=== PATIENT | male | born 1975 | race Two or more races ===

== ENCOUNTER 2017-05-31 12:44 | Inpatient (IN) | payer SELFPAY ==
[2017-05-31] MEDS ORDERED: fentaNYL PF VIAL 100 MCG/2 ML VIAL IV (13:45)
[2017-05-31] MEDS ORDERED: ONDANSETRON PF 4 MG/2 ML VIAL. IV ×2 (13:45→15:15)
[2017-05-31 14:14] LABS: ADD MAN DIFF? NO
[2017-05-31] MEDS: IV NORMAL SALINE 1000ML BAG 1,000 ML IV ×2 (14:21→21:11)
[2017-05-31] MEDS: ONDANSETRON PF 4 MG/2 ML VIAL. IV (14:24)
[2017-05-31 14:25] LABS: BASO # 0.1 x10^3/uL (0.0-0.2); BASO % 1 % (0-3); EOS # 0.1 x10^3/uL (0.0-0.7); EOS % 1 % (0-3); HEMATOCRIT 49.9 % (39.0-53.0); HEMOGLOBIN 16.9 g/dL (13.0-17.5); LYMPH # 2.1 x10^3/uL (1.0-4.8); LYMPH % 21 % (24-48); MEAN CORPUSCULAR HEMOGLOBIN 31 pg (25-35); MEAN CORPUSCULAR HGB CONC 34 g/dL (31-37); MEAN CORPUSCULAR VOLUME 93 fL (79-100); MONO # 0.9 x10^3/uL (0.0-1.1); MONO % 9 % (0-9); NEUT # 7.1 x10^3uL (1.8-7.7); NEUT % 68 % (31-73); PLATELET COUNT 345 x10^3/uL (140-400); RED BLOOD COUNT 5.38 x10^6/uL (4.30-5.70); RED CELL DISTRIBUTION WIDTH 12.7 % (11.5-14.5); WHITE BLOOD COUNT 10.4 x10^3/uL (4.0-11.0)
[2017-05-31] MEDS: KETOROLAC 30 MG/ML INJ. IV (14:26)
[2017-05-31] MEDS: ASPIRIN CHEWABLE 81 MG TABLET. PO (14:28)
[2017-05-31] MEDS: fentaNYL PF VIAL 100 MCG/2 ML VIAL IV (14:30)
[2017-05-31 14:33] LABS: PARTIAL THROMBOPLASTIN TIME 28 SEC (24-38); PROTHROMBIN TIME PATIENT 12.1 SEC (11.7-14.0)
[2017-05-31 14:57] LABS: ETHANOL < 10 mg/dL (0-10)
[2017-05-31 14:58] LABS: ANION GAP 13 (6-14); BLOOD UREA NITROGEN 19 mg/dL (8-26); BUN/CREATININE RATIO 21 (6-20); CALCIUM 10.2 mg/dL (8.5-10.1); CARBON DIOXIDE 25 mmol/L (21-32); CHLORIDE 102 mmol/L (98-107); CREATININE 0.9 mg/dL (0.7-1.3); GFR 93.5; GLUCOSE 86 mg/dL (70-99); POTASSIUM 3.8 mmol/L (3.5-5.1); SODIUM 140 mmol/L (136-145)
[2017-05-31 15:03] LABS: NT-PRO BNP 10 pg/mL (0-124)
[2017-05-31 15:03] LABS: ALBUMIN 4.5 g/dL (3.4-5.0); ALBUMIN/GLOBULIN RATIO 0.9 (1.0-1.7); ALK PHOS 117 U/L (46-116); ALT (SGPT) 143 U/L (16-63); AST (SGOT) 51 U/L (15-37); LIPASE 119 U/L (73-393); MAGNESIUM 2.3 mg/dL (1.8-2.4); TOTAL BILIRUBIN 1.4 mg/dL (0.2-1.0); TOTAL PROTEIN 9.5 g/dL (6.4-8.2)
[2017-05-31 15:04] LABS: TROPONINI < 0.017 ng/mL (0.000-0.055)
[2017-05-31] MEDS ORDERED: ACETAMINOPHEN 500 MG TABLET PO (15:15)
[2017-05-31 16:00] LABS: THYROID STIM HORMONE (TSH) 2.338 uIU/mL (0.358-3.74)
[2017-05-31 16:26] LABS: BILIRUBIN,URINE NEGATIVE (NEG); CLARITY,URINE CLEAR; COLOR,URINE YELLOW; GLUCOSE,URINE NEGATIVE (NEG); NITRITE,URINE NEGATIVE (NEG); PH,URINE 5.5; PROTEIN,URINE 30 mg/dL (NEG-TRACE)
[2017-05-31 16:33] LABS: BACTERIA,URINE 0 /HPF (0-FEW); RBC,URINE 0 /HPF (0-2); WBC,URINE OCC /HPF (0-4)
[2017-05-31 16:34] LABS: BARBITURATES NEG (NEG); BENZODIAZEPINES NEG (NEG); CANNABINOIDS POS (NEG); COCAINE NEG (NEG); HYALINE CASTS, URINE OCCASIONAL /HPF; METHADONE NEG (NEG); OPIATES NEG (NEG); PHENCYCLIDINE NEG (NEG)
[2017-05-31 16:35] LABS: AMPHETAMINE/METHAMPHETAMINE NEG (NEG); ETHANOL, URINE NEG (NEG)
[2017-05-31 16:49] LABS: TROPONINI < 0.017 ng/mL (0.000-0.055)
[2017-05-31] MEDS ORDERED: POLYETHYLENE GLYCOL 3350 17 GM PACKET. PO (17:00)
[2017-05-31 19:53] LABS: TROPONINI < 0.017 ng/mL (0.000-0.055)
[2017-05-31] MEDS ORDERED: ATORVASTATIN CALCIUM 40 MG TABLET. PO (21:00)
[2017-05-31] MEDS: TICAGRELOR 90 MG TABLET. PO (21:09)
[2017-05-31] MEDS: ATORVASTATIN CALCIUM 40 MG TABLET. PO (21:09)
[2017-06-01 06:09] LABS: ADD MAN DIFF? NO
[2017-06-01 06:17] LABS: BASO # 0.1 x10^3/uL (0.0-0.2); BASO % 1 % (0-3); EOS # 0.2 x10^3/uL (0.0-0.7); EOS % 2 % (0-3); HEMATOCRIT 44.5 % (39.0-53.0); LYMPH # 2.3 x10^3/uL (1.0-4.8); LYMPH % 27 % (24-48); MEAN CORPUSCULAR HEMOGLOBIN 32 pg (25-35); MEAN CORPUSCULAR HGB CONC 34 g/dL (31-37); MEAN CORPUSCULAR VOLUME 94 fL (79-100); MONO # 0.6 x10^3/uL (0.0-1.1); MONO % 8 % (0-9); NEUT # 5.2 x10^3uL (1.8-7.7); NEUT % 62 % (31-73); PLATELET COUNT 280 x10^3/uL (140-400); RED BLOOD COUNT 4.75 x10^6/uL (4.30-5.70); RED CELL DISTRIBUTION WIDTH 12.7 % (11.5-14.5); WHITE BLOOD COUNT 8.4 x10^3/uL (4.0-11.0)
[2017-06-01 06:35] LABS: ANION GAP 8 (6-14); BLOOD UREA NITROGEN 19 mg/dL (8-26); CALCIUM 8.9 mg/dL (8.5-10.1); CARBON DIOXIDE 26 mmol/L (21-32); CHLORIDE 106 mmol/L (98-107); GFR 82.8; GLUCOSE 101 mg/dL (70-99); POTASSIUM 4.2 mmol/L (3.5-5.1); SODIUM 140 mmol/L (136-145)
[2017-06-01] MEDS: TICAGRELOR 90 MG TABLET. PO ×2 (09:00→20:48)
[2017-06-01] MEDS ORDERED: REGADENOSON 0.4 MG/5 ML DISP.SYRIN. IV (09:30)
[2017-06-01] MEDS ORDERED: INFLUENZA VAX SCREEN BY RX. MC (09:45)
[2017-06-01 10:02] LABS: ALBUMIN 3.6 g/dL (3.4-5.0); ALK PHOS 95 U/L (46-116); ALT (SGPT) 114 U/L (16-63); AST (SGOT) 42 U/L (15-37); DIRECT BILIRUBIN 0.2 mg/dL (0.0-0.2); TOTAL BILIRUBIN 1.5 mg/dL (0.2-1.0); TOTAL PROTEIN 7.6 g/dL (6.4-8.2)
[2017-06-01] MEDS: REGADENOSON 0.4 MG/5 ML DISP.SYRIN. IV (12:09)
[2017-06-01] MEDS: ASPIRIN CHEWABLE 81 MG TABLET. PO (12:33)
[2017-06-01] MEDS: PANTOPRAZOLE 40 MG TABLET.DR. PO (12:33)
[2017-06-01] MEDS: METOPROLOL TART IMMED RELEASE 25 MG TABLET. PO (12:34)
[2017-06-01] MEDS: FLU VACC QS2017-18 (36MOS+)/PF 0.5 ML SYRINGE. VAX IM (12:58)
[2017-06-01 17:22] LABS: HCV ANTIBODY <0.1 s/co ratio (0.0-0.9); HEP A IGM ABDY Negative (Negative); HEP B SURFACE AG Negative (Negative)
[2017-06-01 20:13] LABS: CALCIUM PTH 10.6 mg/dL (8.7-10.2); CREATININE PTH 0.89 mg/dL (0.76-1.27); PHOSPHORUS PTH 4.1 mg/dL (2.5-4.5); PTH INTACT 20 pg/mL (15-65); eGFR AFRICAN-AMER 124 (>59); eGFR NON AFRICAN-AMER 107 (>59)
[2017-06-01] MEDS: ATORVASTATIN CALCIUM 40 MG TABLET. PO (20:47)
[2017-06-01] MEDS: diphenhydrAMINE HCL 25 MG CAPSULE PO (22:43)
[2017-06-02 04:18] LABS: ADD MAN DIFF? NO
[2017-06-02 04:21] LABS: BASO # 0.1 x10^3/uL (0.0-0.2); BASO % 1 % (0-3); EOS # 0.3 x10^3/uL (0.0-0.7); EOS % 2 % (0-3); HEMATOCRIT 44.1 % (39.0-53.0); HEMOGLOBIN 14.9 g/dL (13.0-17.5); LYMPH # 2.3 x10^3/uL (1.0-4.8); LYMPH % 21 % (24-48); MEAN CORPUSCULAR HEMOGLOBIN 31 pg (25-35); MEAN CORPUSCULAR HGB CONC 34 g/dL (31-37); MEAN CORPUSCULAR VOLUME 93 fL (79-100); MONO # 0.7 x10^3/uL (0.0-1.1); MONO % 6 % (0-9); NEUT # 7.3 x10^3uL (1.8-7.7); NEUT % 69 % (31-73); PLATELET COUNT 276 x10^3/uL (140-400); RED BLOOD COUNT 4.74 x10^6/uL (4.30-5.70); RED CELL DISTRIBUTION WIDTH 12.6 % (11.5-14.5); WHITE BLOOD COUNT 10.6 x10^3/uL (4.0-11.0)
[2017-06-02 04:41] LABS: ALBUMIN 3.7 g/dL (3.4-5.0); ALBUMIN/GLOBULIN RATIO 0.9 (1.0-1.7); ALK PHOS 99 U/L (46-116); ALT (SGPT) 108 U/L (16-63); ANION GAP 8 (6-14); AST (SGOT) 41 U/L (15-37); BLOOD UREA NITROGEN 17 mg/dL (8-26); BUN/CREATININE RATIO 19 (6-20); CARBON DIOXIDE 26 mmol/L (21-32); CHLORIDE 104 mmol/L (98-107); CREATININE 0.9 mg/dL (0.7-1.3); GFR 93.5; GLUCOSE 108 mg/dL (70-99); POTASSIUM 4.1 mmol/L (3.5-5.1); SODIUM 138 mmol/L (136-145); TOTAL BILIRUBIN 1.4 mg/dL (0.2-1.0); TOTAL PROTEIN 7.7 g/dL (6.4-8.2)
[2017-06-02] MEDS: PANTOPRAZOLE 40 MG TABLET.DR. PO (07:19)
[2017-06-02] MEDS: METOPROLOL TART IMMED RELEASE 25 MG TABLET. PO (09:06)
[2017-06-02] MEDS: TICAGRELOR 90 MG TABLET. PO (09:06)
[2017-06-02] MEDS: ASPIRIN CHEWABLE 81 MG TABLET. PO (09:06)
== END 2017-06-02 11:35 | disposition home or self-care (01) | DRG 303 ==
LOC: ER 12:44 → 5 NORTH 14:44
DX: I25.119 Atherosclerotic heart disease of native coronary artery with unspecified angina pectoris (principal); E83.52 Hypercalcemia; E78.5 Hyperlipidemia, unspecified; F12.10 Cannabis abuse, uncomplicated; I10 Essential (primary) hypertension; Z82.49 Family history of ischemic heart disease and other diseases of the circulatory system; Z95.5 Presence of coronary angioplasty implant and graft; F32.9 Major depressive disorder, single episode, unspecified; K59.00 Constipation, unspecified; Z90.49 Acquired absence of other specified parts of digestive tract
CPT/HCPCS: 36415; 71045; 76705; 78452; 80048; 80053; 80074; 80076; 80307; 81001; 83690; 83735; 83880; 83970; 84443; 84484; 85025; 85610; 85730; 90686; 93005; 93017; 96361; 96374; 96375; 96376; 99285; 99285-25; 99406; A9500; G0480; J1885; J2405; J2785; J3010; J7030; Q0163

== ENCOUNTER 2018-05-21 17:42 | Inpatient (IN) | payer OTHER ==
[~2018-05-21] VITALS: Ht 162.6 cm; Wt 82.8 kg
[~2018-05-21 17:42] MED LIST: ASPI-630 PO; ATORVASTATIN CA80 MG PO; METO25TA4 PO; Pantoprazole PO; TICA60TA PO
[2018-05-21 18:15] LABS: BASO # 0.1 x10^3/uL (0.0-0.2); BASO % 1 % (0-3); EOS # 0.3 x10^3/uL (0.0-0.7); EOS % 3 % (0-3); HEMATOCRIT 44.5 % (39.0-53.0); LYMPH # 3.4 x10^3/uL (1.0-4.8); LYMPH % 31 % (24-48); MEAN CORPUSCULAR HEMOGLOBIN 31 pg (25-35); MEAN CORPUSCULAR HGB CONC 34 g/dL (31-37); MEAN CORPUSCULAR VOLUME 93 fL (79-100); MONO # 0.7 x10^3/uL (0.0-1.1); MONO % 6 % (0-9); NEUT # 6.6 x10^3uL (1.8-7.7); NEUT % 59 % (31-73); PLATELET COUNT 309 x10^3/uL (140-400); RED BLOOD COUNT 4.79 x10^6/uL (4.30-5.70); RED CELL DISTRIBUTION WIDTH 12.8 % (11.5-14.5); WHITE BLOOD COUNT 11.2 x10^3/uL (4.0-11.0)
[2018-05-21] MEDS ORDERED: NITROGLYCERIN SUBLINGUAL 0.4 MG BOTTLE OF 25. SL PRN ×2 (18:15→19:00)
[2018-05-21] MEDS ORDERED: ASPIRIN CHEWABLE 81 MG TABLET. PO ONE (18:15)
--- NOTE | 2018-05-21 18:17 | PHYS DOC ---
Past Medical History Past Medical History: MO, Other Additional Past Medical Histor: cardiac stent Past Surgical History: Other Additional Past Surgical Histo: cardiac stent Alcohol Use: None Drug Use: Marijuana Adult General Chief Complaint Chief Complaint: CHEST PAIN HPI HPI Patient is a 42 year old male presenting with chest pain. His stent placed 2 years ago in [place] has had chest pain for one-week worse when he exerts himself at work He's been considered for 2 years he doesn't have a primary really no shortness of breath mild nausea pain rates to the arm it is pressure like somebody is punching him currently mild comes and goes Review of Systems Review of Systems Constitutional: Denies fever or chills [] Eyes: Denies change in visual acuity, redness, or eye pain [] HENT: Denies nasal congestion or sore throat [] Respiratory: Denies cough or shortness of breath [] Cardiovascular: No additional information not addressed in HPI [] GI: Musculoskeletal: Denies back pain or joint pain [] Integument: Denies rash or skin lesions [] Neurologic: Denies headache, focal weakness or sensory changes [] Endocrine: Denies polyuria or polydipsia [] All other systems were reviewed and found to be within normal limits, except as documented in this note. Current Medications Current Medications Allergies Allergies Allergies Coded Allergies Type Severity Reaction Last Updated Verified No Known Drug Allergies 05/31/17 No Physical Exam Physical Exam Constitutional: Well developed, well nourished, no acute distress, non-toxic appearance. [] HENT: Normocephalic, atraumatic, bilateral external ears normal, oropharynx moist, no oral exudates, nose normal. [] Eyes: PERRLA, EOMI, conjunctiva normal, no discharge. [] Neck: Normal range of motion, no tenderness, supple, no stridor. [] Cardiovascular:Heart rate regular rhythm, no murmur [] Lungs & Thorax: Bilateral breath sounds clear to auscultation [] Abdomen: Bowel sounds normal, soft, no tenderness, no masses, no pulsatile masses. [] Skin: Warm, dry, no erythema, no rash. [] Back: No tenderness, no CVA tenderness. [] Extremities: No tenderness, no cyanosis, no clubbing, ROM intact, no edema. [] Neurologic: Alert and oriented X 3, normal motor function, normal sensory function, no focal deficits noted. [] Psychologic: Affect normal, judgement normal, mood normal. [] Current Patient Data Vital Signs Vital Signs Date Time Temp Pulse Resp B/P (MAP) Pulse Ox O2 Delivery O2 Flow Rate FiO2 05/21/18 17:48 98.3 76 18 130/69 (89) 94 Room Air 98.3 EKG EKG All normal sinus rhythm rate of 79 no acute STEMI changes noted no STEMI. Radiology/Procedures Radiology/Procedures [] Impressions: CXR NEG MY READ Course & Med Decision Making Course & Med Decision Making Pertinent Labs and Imaging studies reviewed. (See chart for details) []known stent two years ago now with exertional chest discomfort ekg normal treat ntg , asa, admit. D/W LALO, ADMIT FOR CARDS CONSULT BP WAS LOW 100S SO I GAVE FENTANYKL INSTEAD OF NITRO IN THE ER. Dragon Disclaimer Dragon Disclaimer This electronic medical record was generated, in whole or in part, using a voice recognition dictation system. Departure Departure Impression: Primary Impression: Chest pain Disposition: ADMITTED INPATIENT Admitting Physician: Cheryl Roca Condition: STABLE Referrals: NO PCP (PCP) RABIA CHRISTIE MD May 21, 2018 18:17
[2018-05-21 18:23] LABS: PROTHROMBIN TIME PATIENT 12.1 SEC (11.7-14.0)
[2018-05-21 18:32] LABS: CREATININE 0.9 mg/dL (0.7-1.3); POTASSIUM 3.8 mmol/L (3.5-5.1)
[2018-05-21 18:38] LABS: ALBUMIN 3.7 g/dL (3.4-5.0); ALBUMIN/GLOBULIN RATIO 0.8 (1.0-1.7); TOTAL BILIRUBIN 0.3 mg/dL (0.2-1.0); TOTAL PROTEIN 8.2 g/dL (6.4-8.2)
[2018-05-21] MEDS ORDERED: fentaNYL PF VIAL 100 MCG/2 ML VIAL IV ONE (19:00)
[2018-05-21] MEDS ORDERED: IV NORMAL SALINE 1000ML BAG 1,000 ML IV ONE (19:00)
--- NOTE | 2018-05-21 19:35 | RAD ---
PROCEDURE: PORTABLE CHEST 1V CLINICAL INDICATION: ER PATIENT LEFT SIDE CHEST PAIN. PRIOR XRAY. COMPARISON: 05/31/2017" FINDINGS: No pneumothorax identified. Cardiac and mediastinal contours unremarkable. No pulmonary consolidation or acute airspace disease. No acute osseous abnormalities identified. IMPRESSION: No pulmonary consolidation or acute airspace disease. Electronically signed by: Parish Sneed DO (05/21/2018 7:32 PM) [facility]
--- NOTE | 2018-05-21 19:45 | PDOC1 ---
History and Physical Date of Admission Date of Admission DATE: 05/21/18 TIME: 19:42 Identification/Chief Complaint Chief Complaint chest Pain Source Source: Caregiver, Chart review, Patient History of Present Illness History of Present Illness 42-year-old speaking only male but known to us, history of CAD 1 stent , on Brilinta and other medications (Beta caroline, aspirin 81, statin 80) and claims compliance to meds, chest pain today while doing laundry. Brother at age 35 of heart problems. Does not smoke does not drink. NOn DM. Labs so far reassuring except for WBC mild elevation 11.2. Admitted bec high risk pt, did complain of left arm involvement, may be some diaphoresis? Or at least S OA. Past Medical History Cardiovascular: CAD, HTN, Hyperlipidemia Psych: Depression Past Surgical History Past Surgical History: Other (CAD 1 stent?) Family History Family History: Coronary Artery Disease, Heart Disease Social History Smoke: No ALCOHOL: none Drugs: Marijuana Current Problem List Problem List Problems Medical Problems: (1) Chest pain Status: Acute Current Medications Current Medications Current Medications Aspirin (Children'S Aspirin) 324 mg 1X ONCE PO Last administered on 05/21/18at 18:50; Start 05/21/18 at 18:15; Stop 05/21/18 at 18:16; Status DC Nitroglycerin (Nitrostat) 0.4 mg PRN Q5MIN PRN SL CHEST PAIN; Start 05/21/18 at 18:15 Nitroglycerin (Nitrostat) 0.4 mg PRN Q5MIN PRN SL CHEST PAIN; Start 05/21/18 at 19:00; Stop 05/22/18 at 18:59 Fentanyl Citrate (Fentanyl 2ml Vial) 50 mcg 1X ONCE IV ; Start 05/21/18 at 19: 00; Stop 05/21/18 at 19:01; Status DC Sodium Chloride 1,000 ml @ 1,000 mls/hr 1X ONCE IV ; Start 05/21/18 at 19:00; Stop 05/21/18 at 19:59 Active Scripts Active [Pantoprazole] 40 MG Tablet.dr 40 Mg PO DAILYAC Brilinta (Ticagrelor) 60 Mg Tablet 90 Mg PO DAILY Metoprolol Tartrate 25 Mg Tablet 1 Tab PO DAILY Atorvastatin Calcium 80 Mg Tablet 1 Tab PO DAILY Aspirin 81 Mg Tab.chew 1 Tab PO DAILY Allergies Allergies: Coded Allergies: No Known Drug Allergies (Unverified , 05/31/17) ROS Review of System As per history of present illness, the rest of ROS negative Physical Exam General: Alert, Oriented X3, Cooperative, No acute distress HEENT: Atraumatic, PERRLA Lungs: Clear to auscultation, Normal air movement Heart: S1S2, RRR, no thrills, no rubs, no gallops, no murmurs Cardiovascular: S1, S2 Abdomen: Normal bowel sounds, Soft, No tenderness, No hepatosplenomegaly, No masses Male Genitals Exam: normal genitalia, normal prostate Rectal Exam: not examined PELVIC: Nml ext genitalia Extremities: No clubbing, No cyanosis, No edema, Normal pulses, No tenderness/ swelling Skin: No rashes, No breakdown, No significant lesion Neuro: Normal gait, Normal speech, Strength at 5/5 X4 ext, Normal tone, Sensation intact, Cranial nerves 3-12 NL, Reflexes 2+ Psych/Mental Status: Mental status NL, Mood NL Vitals Vitals Vital Signs Date Time Temp Pulse Resp B/P (MAP) Pulse Ox O2 Delivery O2 Flow Rate FiO2 05/21/18 17:48 98.3 76 18 130/69 (89) 94 Room Air 98.3 Labs Labs Laboratory Tests Test 05/21/18 18:04 05/21/18 18:05 White Blood Count 11.2 x10^3/uL (4.0-11.0) Red Blood Count 4.79 x10^6/uL (4.30-5.70) Hemoglobin 15.0 g/dL (13.0-17.5) Hematocrit 44.5 % (39.0-53.0) Mean Corpuscular Volume 93 fL (79-100) Mean Corpuscular Hemoglobin 31 pg (25-35) Mean Corpuscular Hemoglobin Concent 34 g/dL (31-37) Red Cell Distribution Width 12.8 % (11.5-14.5) Platelet Count 309 x10^3/uL (140-400) Neutrophils (%) (Auto) 59 % (31-73) Lymphocytes (%) (Auto) 31 % (24-48) Monocytes (%) (Auto) 6 % (0-9) Eosinophils (%) (Auto) 3 % (0-3) Basophils (%) (Auto) 1 % (0-3) Neutrophils # (Auto) 6.6 x10^3uL (1.8-7.7) Lymphocytes # (Auto) 3.4 x10^3/uL (1.0-4.8) Monocytes # (Auto) 0.7 x10^3/uL (0.0-1.1) Eosinophils # (Auto) 0.3 x10^3/uL (0.0-0.7) Basophils # (Auto) 0.1 x10^3/uL (0.0-0.2) Prothrombin Time 12.1 SEC (11.7-14.0) Prothromb Time International Ratio 0.9 (0.8-1.1) Sodium Level 138 mmol/L (136-145) Potassium Level 3.8 mmol/L (3.5-5.1) Chloride Level 101 mmol/L (98-107) Carbon Dioxide Level 28 mmol/L (21-32) Anion Gap 9 (6-14) Blood Urea Nitrogen 19 mg/dL (8-26) Creatinine 0.9 mg/dL (0.7-1.3) Estimated GFR (Cockcroft-Gault) 93.0 BUN/Creatinine Ratio 21 (6-20) Glucose Level 109 mg/dL (70-99) Calcium Level 9.0 mg/dL (8.5-10.1) Total Bilirubin 0.3 mg/dL (0.2-1.0) Aspartate Amino Transf (AST/SGOT) 18 U/L (15-37) Alanine Aminotransferase (ALT/SGPT) 41 U/L (16-63) Alkaline Phosphatase 79 U/L (46-116) Troponin I Quantitative < 0.017 ng/mL (0.000-0.055) FE-Gjg-W-Type Natriuretic Peptide 25 pg/mL (0-124) Total Protein 8.2 g/dL (6.4-8.2) Albumin 3.7 g/dL (3.4-5.0) Albumin/Globulin Ratio 0.8 (1.0-1.7) Laboratory Tests Test 05/21/18 18:04 05/21/18 18:05 White Blood Count 11.2 x10^3/uL (4.0-11.0) Red Blood Count 4.79 x10^6/uL (4.30-5.70) Hemoglobin 15.0 g/dL (13.0-17.5) Hematocrit 44.5 % (39.0-53.0) Mean Corpuscular Volume 93 fL (79-100) Mean Corpuscular Hemoglobin 31 pg (25-35) Mean Corpuscular Hemoglobin Concent 34 g/dL (31-37) Red Cell Distribution Width 12.8 % (11.5-14.5) Platelet Count 309 x10^3/uL (140-400) Neutrophils (%) (Auto) 59 % (31-73) Lymphocytes (%) (Auto) 31 % (24-48) Monocytes (%) (Auto) 6 % (0-9) Eosinophils (%) (Auto) 3 % (0-3) Basophils (%) (Auto) 1 % (0-3) Neutrophils # (Auto) 6.6 x10^3uL (1.8-7.7) Lymphocytes # (Auto) 3.4 x10^3/uL (1.0-4.8) Monocytes # (Auto) 0.7 x10^3/uL (0.0-1.1) Eosinophils # (Auto) 0.3 x10^3/uL (0.0-0.7) Basophils # (Auto) 0.1 x10^3/uL (0.0-0.2) Prothrombin Time 12.1 SEC (11.7-14.0) Prothromb Time International Ratio 0.9 (0.8-1.1) Sodium Level 138 mmol/L (136-145) Potassium Level 3.8 mmol/L (3.5-5.1) Chloride Level 101 mmol/L (98-107) Carbon Dioxide Level 28 mmol/L (21-32) Anion Gap 9 (6-14) Blood Urea Nitrogen 19 mg/dL (8-26) Creatinine 0.9 mg/dL (0.7-1.3) Estimated GFR (Cockcroft-Gault) 93.0 BUN/Creatinine Ratio 21 (6-20) Glucose Level 109 mg/dL (70-99) Calcium Level 9.0 mg/dL (8.5-10.1) Total Bilirubin 0.3 mg/dL (0.2-1.0) Aspartate Amino Transf (AST/SGOT) 18 U/L (15-37) Alanine Aminotransferase (ALT/SGPT) 41 U/L (16-63) Alkaline Phosphatase 79 U/L (46-116) Troponin I Quantitative < 0.017 ng/mL (0.000-0.055) KT-Qay-N-Type Natriuretic Peptide 25 pg/mL (0-124) Total Protein 8.2 g/dL (6.4-8.2) Albumin 3.7 g/dL (3.4-5.0) Albumin/Globulin Ratio 0.8 (1.0-1.7) VTE Prophylaxis Ordered VTE Prophylaxis Devices: Yes VTE Pharmacological Prophylaxi: Yes Assessment/Plan Assessment/Plan Angina CAD with known stent/s Family history premature CAD Leukocytosis, possibly reactive Plan : nothing by mouth post midnight, trend cardiac enzymes Reconciled home meds-I did Cards consult Cont pau, statin, asa, BB Seen at DEAN WILLAMS MD May 21, 2018 19:45
[2018-05-21 20:12] VITALS: BP 111/73
[2018-05-21 20:16] LABS: BARBITURATES NEG (NEG); BENZODIAZEPINES NEG (NEG); CANNABINOIDS POS (NEG); COCAINE NEG (NEG); METHADONE NEG (NEG); OPIATES NEG (NEG); PHENCYCLIDINE NEG (NEG)
[2018-05-21 20:22] LABS: AMPHETAMINE/METHAMPHETAMINE NEG (NEG)
--- NOTE | 2018-05-21 21:00 | NUR ---
Pt arrived to room 204 per cart. Pt assisted to bed poc explained. Pt speaks swiss only and understands little slovenian. vs obtained and stable pt denies pain at this time assessment completed. Pt is a poor historian no family at bedside will resume care and continue to monitor pt. Call placed to re pt requesting something for sleep.
[2018-05-21] MEDS: clonazePAM 0.5 MG TABLET PO PRN (21:55)
[2018-05-21] MEDS: ATORVASTATIN CALCIUM 40 MG TABLET. PO SCH (21:55)
[2018-05-21] MEDS: TICAGRELOR 90 MG TABLET. PO SCH (21:55)
[2018-05-21] MEDS: diphenhydrAMINE HCL 25 MG CAPSULE PO PRN (21:55)
[2018-05-21 22:52] VITALS: BP 107/63
[2018-05-22] VITALS (11 sets, daily range): BP systolic 103–135; BP diastolic 53–80
[2018-05-22 01:44] LABS: CHOLESTEROL/HDL RATIO 9.3
--- NOTE | 2018-05-22 04:56 | EKG ---
[facility] [address] [place] [address] Test Date: 2018-05-21 Test Time: 17:51:43 Pat Name: ELEN LAWRENCE Department: Room: 204 1 Gender: M Well Shooter: : 1975 Requested By: RABIA CHRISTIE Order Number: [id number] Reading MD: Geovany Montes De Oca Measurements Intervals [place] Rate: 79 P: 59 CT: 156 QRS: 41 QRSD: 90 T: 4 QT: 350 QTc: 407 Interpretive Statements SINUS RHYTHM NORMAL ECG Electronically Signed On 05-29-2018 10:49:40 ORDER CONTROL CLERK BLOOD BANK by Geovany Montes De Oca
[2018-05-22] MEDS: PANTOPRAZOLE 40 MG TABLET.DR. PO SCH (06:16)
[2018-05-22] MEDS: TICAGRELOR 90 MG TABLET. PO SCH ×2 (09:00→20:57)
[2018-05-22] MEDS: METOPROLOL TART IMMED RELEASE 25 MG TABLET. PO SCH (09:00)
[2018-05-22] MEDS: ASPIRIN CHEWABLE 81 MG TABLET. PO SCH (10:32)
--- NOTE | 2018-05-22 10:43 | PDOC2 ---
SHIVA EDOUARD [employer] 05/22/18 1043: CARDIAC CONSULT DATE OF CONSULT Date of Consult DATE: 05/22/18 TIME: 10:35 REASON FOR CONSULT Reason for Consult: Chest pain REFERRING PHYSICIAN Referring Physician: carolyn SOURCE Source: Chart review, Patient HISTORY OF PRESENT ILLNESS HISTORY OF PRESENT ILLNESS This is a 42 yo male admitted for complains of chest pain. This has been going on in the last week. Positive for exertional CP describing it as sharp that radiates with heaviness to left arm. Positive for nause, diaphoresis and exertional SOA. These are the same symptoms when he had his stents in 2017. He moved to after his PCI in [place] and was only on DAPT for 1-2 months due to losing his insurance. Also not on statin but has been taking ASA and 1 BP med. He has quit smoking tobacco but smokes marijuana to help him sleep. No ETOH. PAST MEDICAL HISTORY Cardiovascular: CAD, HTN Pulmonary: No pertinent hx CENTRAL NERVOUS SYSTEM: Other (No pertinent history) GI: No pertinent hx Heme/Onc: No pertinent hx Hepatobiliary: No pertinent hx Psych: Other (insomnia) Musculoskeletal: Osteoarthritis Rheumatologic: No pertinent hx Infectious disease: No pertinent hx ENT: No pertinent hx Renal/: No pertinent hx Endocrine: No pertinent hx Dermatology: No pertinent hx PAST SURGICAL HISTORY Past Surgical History: Other (PCI/stents 02/2017) FAMILY HISTORY Family History: Heart Disease SOCIAL HISTORY Smoke: Quit ALCOHOL: none Drugs: Marijuana Lives: with Family CURRENT MEDICATIONS CURRENT MEDICATIONS Current Medications Medications (Trade) Dose Ordered Sig/Franny Route PRN Reason Start Time Stop Time Status Last Admin Dose Admin Aspirin (Children'S Aspirin) 324 mg 1X ONCE PO 05/21/18 18:15 05/21/18 18:16 DC 05/21/18 18:50 Fentanyl Citrate (Fentanyl 2ml Vial) 50 mcg 1X ONCE IV 05/21/18 19:00 05/21/18 19:01 DC 05/21/18 19:43 Sodium Chloride 1,000 ml @ 1,000 mls/hr 1X ONCE IV 05/21/18 19:00 05/21/18 19:59 DC 05/21/18 19:44 Aspirin (Children'S Aspirin) 81 mg DAILY PO 05/22/18 09:00 05/22/18 10:32 Atorvastatin Calcium (Lipitor) 80 mg QHS PO 05/21/18 21:00 05/21/18 21:55 Ticagrelor (Brilinta) 90 mg BID PO 05/21/18 21:00 05/21/18 21:55 Pantoprazole Sodium (Protonix) 40 mg DAILYAC PO 05/22/18 07:30 05/22/18 06:16 Diphenhydramine HCl (Benadryl) 25 mg PRN QHS PRN PO INSOMNIA 05/21/18 19:45 05/21/18 21:55 Clonazepam (KlonoPIN) 0.5 mg PRN QHS PRN PO ANXIETY / AGITATION 05/21/18 20:45 05/21/18 21:55 ALLERGIES ALLERGIES: Coded Allergies: No Known Drug Allergies (Unverified , 05/31/17) ROS Review of System 14 point ROS evaluated with pertinent positives noted per HPI PHYSICAL EXAM General: Alert, Oriented X3, Cooperative, No acute distress HEENT: Atraumatic, Mucous membr. moist/pink Lungs: Clear to auscultation, Normal air movement Heart: Regular rate (SR), Normal S1, Normal S2, No murmurs Abdomen: Soft, No tenderness Extremities: No cyanosis, No edema Skin: No breakdown, No significant lesion Neuro: Normal speech, Normal tone Psych/Mental Status: Mental status NL, Mood NL MUSCULOSKELETAL: Osteoarthritic changes both hands VITALS VITALS Vital Signs Date Time Temp Pulse Resp B/P (MAP) Pulse Ox O2 Delivery O2 Flow Rate FiO2 05/22/18 08:00 Room Air 05/22/18 07:06 97.6 51 16 112/71 (85) 98 97.6 LABS Lab: Laboratory Tests Test 05/21/18 18:04 05/21/18 18:05 05/21/18 19:43 05/21/18 21:55 White Blood Count 11.2 x10^3/uL (4.0-11.0) Red Blood Count 4.79 x10^6/uL (4.30-5.70) Hemoglobin 15.0 g/dL (13.0-17.5) Hematocrit 44.5 % (39.0-53.0) Mean Corpuscular Volume 93 fL (79-100) Mean Corpuscular Hemoglobin 31 pg (25-35) Mean Corpuscular Hemoglobin Concent 34 g/dL (31-37) Red Cell Distribution Width 12.8 % (11.5-14.5) Platelet Count 309 x10^3/uL (140-400) Neutrophils (%) (Auto) 59 % (31-73) Lymphocytes (%) (Auto) 31 % (24-48) Monocytes (%) (Auto) 6 % (0-9) Eosinophils (%) (Auto) 3 % (0-3) Basophils (%) (Auto) 1 % (0-3) Neutrophils # (Auto) 6.6 x10^3uL (1.8-7.7) Lymphocytes # (Auto) 3.4 x10^3/uL (1.0-4.8) Monocytes # (Auto) 0.7 x10^3/uL (0.0-1.1) Eosinophils # (Auto) 0.3 x10^3/uL (0.0-0.7) Basophils # (Auto) 0.1 x10^3/uL (0.0-0.2) Prothrombin Time 12.1 SEC (11.7-14.0) Prothromb Time International Ratio 0.9 (0.8-1.1) Sodium Level 138 mmol/L (136-145) Potassium Level 3.8 mmol/L (3.5-5.1) Chloride Level 101 mmol/L (98-107) Carbon Dioxide Level 28 mmol/L (21-32) Anion Gap 9 (6-14) Blood Urea Nitrogen 19 mg/dL (8-26) Creatinine 0.9 mg/dL (0.7-1.3) Estimated GFR (Cockcroft-Gault) 93.0 BUN/Creatinine Ratio 21 (6-20) Glucose Level 109 mg/dL (70-99) Calcium Level 9.0 mg/dL (8.5-10.1) Total Bilirubin 0.3 mg/dL (0.2-1.0) Aspartate Amino Transf (AST/SGOT) 18 U/L (15-37) Alanine Aminotransferase (ALT/SGPT) 41 U/L (16-63) Alkaline Phosphatase 79 U/L (46-116) Troponin I Quantitative < 0.017 ng/mL (0.000-0.055) < 0.017 ng/mL (0.000-0.055) FC-Bxb-[id number]-Type Natriuretic Peptide 25 pg/mL (0-124) Total Protein 8.2 g/dL (6.4-8.2) Albumin 3.7 g/dL (3.4-5.0) Albumin/Globulin Ratio 0.8 (1.0-1.7) Urine Opiates Screen Neg (NEG) Urine Methadone Screen Neg (NEG) Urine Barbiturates Neg (NEG) Urine Phencyclidine Screen Neg (NEG) Urine Amphetamine/Methamphetamine Neg (NEG) Urine Benzodiazepines Screen Neg (NEG) Urine Cocaine Screen Neg (NEG) Urine Cannabinoids Screen Pos (NEG) Urine Ethyl Alcohol Neg (NEG) Test 05/22/18 01:00 Troponin I Quantitative < 0.017 ng/mL (0.000-0.055) Triglycerides Level 487 mg/dL (0-150) Cholesterol Level 261 mg/dL (0-200) LDL Cholesterol, Calculated 136 mg/dL (0-100) VLDL Cholesterol, Calculated 97 mg/dL (0-40) Non-HDL Cholesterol Calculated 233 mg/dL (0-129) HDL Cholesterol 28 mg/dL (40-60) Cholesterol/HDL Ratio 9.3 ASSESSMENT/PLAN ASSESSMENT/PLAN 1. Chest pain: UA features 2. HTN 3. HLP: not on goal 4. CAD; stents in 2017 in [place] 5. Chronic Marijuana use: uses it for insomnia 6. Noncompliance: due previous lack of ins. stopped taking DAPT 1-2 month post PCI on 02/2017 Recommendations 1. ASA. restart lipitor, 2. TTE. dietitian consult. 3. C today, risks and benefits discussed using risk mgr phone and agreeable to proceed. LILIBETH TATE MD 05/22/18 1718: CARDIAC CONSULT ASSESSMENT/PLAN ASSESSMENT/PLAN Patient seen and examined. Agree with PATTERN VAULT CLERK's assessment and plan. Chest pain with typical features suspicious for unstable angina. We will proceed with cardiac catheterization and possible angioplasty. Risks and benefits were explained and he is agreeable. Thank you for your consultation. SHIVA EDOUARD APRN May 22, 2018 10:43 LILIBETH TATE MD May 22, 2018 17:18
[2018-05-22] MEDS ORDERED: IV NORMAL SALINE 1000ML BAG 1,000 ML IV ONE (11:30)
[2018-05-22] MEDS ORDERED: LIDOCAINE 1% PF 2 ML VIAL. ONE (15:06)
[2018-05-22] MEDS ORDERED: IODIXANOL 320 MG/ML 100 ML VIAL. ONE (15:06)
[2018-05-22] MEDS ORDERED: fentaNYL PF VIAL 100 MCG/2 ML VIAL ONE (15:10)
[2018-05-22] MEDS ORDERED: HEPARIN for IV BOLUS 10,000 UNIT/10 ML VIAL. ONE (15:10)
[2018-05-22] MEDS ORDERED: VERAPAMIL 5 MG/2 ML VIAL. ONE (15:10)
[2018-05-22] MEDS ORDERED: NITROGLYCERIN 200 MCG/2 ML SYRINGE FOR CATH/VASC LAB. ONE (15:10)
[2018-05-22] MEDS ORDERED: MIDAZOLAM HCL/PF 2 MG/2 ML VIAL. ONE (15:10)
[2018-05-22] MEDS ORDERED: LIDOCAINE 1% Multi-Dose 20 ML VIAL. ONE (15:47)
[2018-05-22] MEDS ORDERED: MIDAZOLAM HCL/PF 2 MG/2 ML VIAL. IV ONE (16:00)
[2018-05-22] MEDS ORDERED: fentaNYL PF VIAL 100 MCG/2 ML VIAL IV ONE (16:00)
[2018-05-22] MEDS ORDERED: IODIXANOL 320 MG/ML 100 ML VIAL. IART ONE (16:00)
[2018-05-22] MEDS ORDERED: LIDOCAINE 1% PF 2 ML VIAL. INJ ONE (16:00)
[2018-05-22] MEDS ORDERED: LIDOCAINE 1% Multi-Dose 20 ML VIAL. INJ ONE (16:00)
--- NOTE | 2018-05-22 16:46 | CARD ---
MR#: [id number] Date of Study: 05/22/2018 Ordering Physician: SHIVA EDOUARD, Referring Physician: DEAN MAY Tech: RT Gisselle (R) APPROVED REPORT Technologist: RT Gisselle (R) Nurse: Olga Davis R.N. Procedure(s) performed: Left heart catheterization, selective coronary angiography and left ventricul ography Moderate sedation: 30 min INDICATION The indication(s) include : unstable angina . PROCEDURE NARRATIVE After explaining the risks, benefits and alternative options, informed consent was obtained from jones ent. Patient was brought to the cardiac Actuary Manager and right wrist was prepped and draped in the usual fashion after confirming a positive modified Macho's test. Arterial access was obtained in the [facility] t radial artery but attempts to advance wire past the midportion of right forearm were unsuccessful p robably secondary to scarring he had from previous surgery in that area. Hence a decision was made to switch access site the right groin. 20 mL of 2% lidocaine was infiltrated into the skin and subcutan eous tissues for local anesthesia. Arterial access was obtained in the right common femoral artery an d a 6 Thai sheath was inserted. 6 Thai JL4 and 6 Thai JR4 catheters were used to perform select javier angiography of the left and right coronary arteries. 6 Thai pigtail catheter was used to perfo rm left ventriculography. Patient tolerated the procedure well. Hemostasis was achieved using mynx closure device. There were no immediate complications. The following findings were noted. FINDINGS 1. Hemodynamics: Left ventricular end-diastolic pressure of 13 mmHg. No pullback gradient across th e aortic valve. 2. Left ventriculography: Normal left ventricle systolic function with ejection fraction estimated at 60%. No significant mitral regurgitation seen. 3. Coronary angiography: a. The left main coronary artery arose from the left sinus of Valsalva, gave rise to the left anteri or descending and left circumflex arteries and did not show any significant stenosis. b. The left anterior descending artery did not show any significant stenosis. c. The left circumflex artery did not show any significant stenosis. d. The right coronary artery was a large and dominant vessel arising from the right sinus of Valsalv a that showed 30% stenosis in the proximal segment and widely patent stent in the midsegment. Conclusion 1. No significant coronary artery disease with widely patent previously placed stent in the right co ronary artery. 2. Normal left ventricle systolic function with ejection fraction estimated at 60%. Recommendations Medical Therapy Signed by : Geovany Montes De Oca, Electronically Approved : 05/22/2018 16:46:22
[2018-05-22] MEDS: IV 1/2 NORMAL SALINE 1,000 ML IV SCH (16:59)
--- NOTE | 2018-05-22 16:59 | PDOC ---
MODERATE SEDATION ASSESSMENT RISKS/ALTERNATIVES Risks/Alternatives Risks and alternatives of this type of sedation and procedure discussed with: RISK/ALTERNATIVES: Patient H & P ON CHART H & P H & P on chart and reviewed for co-morbid conditions and appropriate labs. H&P ON CHART: Yes STATUS PREG STATUS ASSESSED: N/A MEDS/ALLERGIES REVIEWED Meds/Allergies Reviewed Medications and Allergies including time and route of recently administered narcotics and sedatives. MEDS/ALLERGIES REVIEWED: Yes ASA RATING ASA RATING: II AIRWAY ASSESSMENT Airway Assessment Airway patency, oral function limitations, presence of caps, crowns, dentures, partials, and ability to extend neck assessed. AIRWAY ASSESSMENT: Yes MALLAMPATI SCORE MALLAMPATI SCORE: II PRE-SEDATION ASSESSMENT PRE-SEDATION ASSESSMENT: Yes LILIBETH TATE MD May 22, 2018 16:59
[2018-05-22] MEDS ORDERED: NITROGLYCERIN SUBLINGUAL 0.4 MG BOTTLE OF 25. SL PRN (17:00)
[2018-05-22] MEDS ORDERED: 0.9 % SODIUM CHLORIDE 10 ML DISP.SYRIN. IV PRN (17:00)
--- NOTE | 2018-05-22 17:54 | NUR ---
NS at 75 still infusing from prior to cath.
--- NOTE | 2018-05-22 18:30 | NUR ---
Patient back from cath at 1630. Small amount of oozing noted during flat time. At 1800 patient states he has leg pain all down leg, rates it 9/10 and describes as "throbbing." Palpable pedal pulses 2+. Discussed with Dr. Montes De Oca. Orders for morphine and try holding pressure for 5 min. Will continue to monitor.
[2018-05-22] MEDS: clonazePAM 0.5 MG TABLET PO PRN ×2 (18:39→20:57)
[2018-05-22] MEDS ORDERED: MORPHINE SULFATE 4 MG/ML VIAL. IV PRN (18:45)
--- NOTE | 2018-05-22 19:53 | PDOC ---
PROGRESS NOTES Chief Complaint Chief Complaint Assessment/Plan Angina CAD with known stent/s Family history premature CAD Leukocytosis, possibly reactive Plan : nothing by mouth post midnight, trend cardiac enzymes Reconciled home meds-I did Cards consult Cont brilinta, statin, asa, BB History of Present Illness History of Present Illness Patient with no complains during my visit. Patient with extensive family history , he seems very distraught and depressed. Reassurance provided. Vitals Vitals Vital Signs Date Time Temp Pulse Resp B/P (MAP) Pulse Ox O2 Delivery O2 Flow Rate FiO2 05/22/18 18:50 20 05/22/18 18:45 69 135/80 (98) 05/22/18 16:13 97 Nasal Cannula 2.0 05/22/18 11:00 97.9 97.9 Physical Exam General: Alert, Oriented X3, Cooperative, No acute distress Heart: Regular rate (SR), Normal S1, Normal S2, No murmurs Lungs: Clear Abdomen: Soft, No tenderness Extremities: No cyanosis, No edema Skin: No breakdown, No significant lesion Labs LABS Laboratory Tests Test 05/21/18 21:55 05/22/18 01:00 Troponin I Quantitative < 0.017 ng/mL (0.000-0.055) < 0.017 ng/mL (0.000-0.055) Thyroid Stimulating Hormone (TSH) 3.835 uIU/mL (0.358-3.74) Triglycerides Level 487 mg/dL (0-150) Cholesterol Level 261 mg/dL (0-200) LDL Cholesterol, Calculated 136 mg/dL (0-100) VLDL Cholesterol, Calculated 97 mg/dL (0-40) Non-HDL Cholesterol Calculated 233 mg/dL (0-129) HDL Cholesterol 28 mg/dL (40-60) Cholesterol/HDL Ratio 9.3 Review of Systems Review of Systems Pertinent as per history of present illness otherwise 10 point review of system is negative Assessment and Plan Assessmemt and Plan Problems Medical Problems: (1) Chest pain Status: Acute Comment Review of Relevant I have reviewed the following items reggie (where applicable) has been applied. Labs Laboratory Tests Test 05/21/18 18:04 05/21/18 18:05 05/21/18 19:43 05/21/18 21:55 White Blood Count 11.2 x10^3/uL (4.0-11.0) Red Blood Count 4.79 x10^6/uL (4.30-5.70) Hemoglobin 15.0 g/dL (13.0-17.5) Hematocrit 44.5 % (39.0-53.0) Mean Corpuscular Volume 93 fL (79-100) Mean Corpuscular Hemoglobin 31 pg (25-35) Mean Corpuscular Hemoglobin Concent 34 g/dL (31-37) Red Cell Distribution Width 12.8 % (11.5-14.5) Platelet Count 309 x10^3/uL (140-400) Neutrophils (%) (Auto) 59 % (31-73) Lymphocytes (%) (Auto) 31 % (24-48) Monocytes (%) (Auto) 6 % (0-9) Eosinophils (%) (Auto) 3 % (0-3) Basophils (%) (Auto) 1 % (0-3) Neutrophils # (Auto) 6.6 x10^3uL (1.8-7.7) Lymphocytes # (Auto) 3.4 x10^3/uL (1.0-4.8) Monocytes # (Auto) 0.7 x10^3/uL (0.0-1.1) Eosinophils # (Auto) 0.3 x10^3/uL (0.0-0.7) Basophils # (Auto) 0.1 x10^3/uL (0.0-0.2) Prothrombin Time 12.1 SEC (11.7-14.0) Prothromb Time International Ratio 0.9 (0.8-1.1) Sodium Level 138 mmol/L (136-145) Potassium Level 3.8 mmol/L (3.5-5.1) Chloride Level 101 mmol/L (98-107) Carbon Dioxide Level 28 mmol/L (21-32) Anion Gap 9 (6-14) Blood Urea Nitrogen 19 mg/dL (8-26) Creatinine 0.9 mg/dL (0.7-1.3) Estimated GFR (Cockcroft-Gault) 93.0 BUN/Creatinine Ratio 21 (6-20) Glucose Level 109 mg/dL (70-99) Calcium Level 9.0 mg/dL (8.5-10.1) Total Bilirubin 0.3 mg/dL (0.2-1.0) Aspartate Amino Transf (AST/SGOT) 18 U/L (15-37) Alanine Aminotransferase (ALT/SGPT) 41 U/L (16-63) Alkaline Phosphatase 79 U/L (46-116) Troponin I Quantitative < 0.017 ng/mL (0.000-0.055) < 0.017 ng/mL (0.000-0.055) WV-Xjq-L-Type Natriuretic Peptide 25 pg/mL (0-124) Total Protein 8.2 g/dL (6.4-8.2) Albumin 3.7 g/dL (3.4-5.0) Albumin/Globulin Ratio 0.8 (1.0-1.7) Urine Opiates Screen Neg (NEG) Urine Methadone Screen Neg (NEG) Urine Barbiturates Neg (NEG) Urine Phencyclidine Screen Neg (NEG) Urine Amphetamine/Methamphetamine Neg (NEG) Urine Benzodiazepines Screen Neg (NEG) Urine Cocaine Screen Neg (NEG) Urine Cannabinoids Screen Pos (NEG) Urine Ethyl Alcohol Neg (NEG) Thyroid Stimulating Hormone (TSH) 3.835 uIU/mL (0.358-3.74) Test 05/22/18 01:00 Troponin I Quantitative < 0.017 ng/mL (0.000-0.055) Triglycerides Level 487 mg/dL (0-150) Cholesterol Level 261 mg/dL (0-200) LDL Cholesterol, Calculated 136 mg/dL (0-100) VLDL Cholesterol, Calculated 97 mg/dL (0-40) Non-HDL Cholesterol Calculated 233 mg/dL (0-129) HDL Cholesterol 28 mg/dL (40-60) Cholesterol/HDL Ratio 9.3 Laboratory Tests Test 05/21/18 21:55 05/22/18 01:00 Troponin I Quantitative < 0.017 ng/mL (0.000-0.055) < 0.017 ng/mL (0.000-0.055) Thyroid Stimulating Hormone (TSH) 3.835 uIU/mL (0.358-3.74) Triglycerides Level 487 mg/dL (0-150) Cholesterol Level 261 mg/dL (0-200) LDL Cholesterol, Calculated 136 mg/dL (0-100) VLDL Cholesterol, Calculated 97 mg/dL (0-40) Non-HDL Cholesterol Calculated 233 mg/dL (0-129) HDL Cholesterol 28 mg/dL (40-60) Cholesterol/HDL Ratio 9.3 Medications Current Medications Aspirin (Children'S Aspirin) 324 mg 1X ONCE PO Last administered on 05/21/18at 18:50; Start 05/21/18 at 18:15; Stop 05/21/18 at 18:16; Status DC Nitroglycerin (Nitrostat) 0.4 mg PRN Q5MIN PRN SL CHEST PAIN; Start 05/21/18 at 18:15; Stop 05/22/18 at 17:03; Status DC Nitroglycerin (Nitrostat) 0.4 mg PRN Q5MIN PRN SL CHEST PAIN; Start 05/21/18 at 19:00; Stop 05/22/18 at 15:52; Status DC Fentanyl Citrate (Fentanyl 2ml Vial) 50 mcg 1X ONCE IV Last administered on at 19:43; Start 05/21/18 at 19:00; Stop 05/21/18 at 19:01; Status DC Sodium Chloride 1,000 ml @ 1,000 mls/hr 1X ONCE IV Last administered on at 19:44; Start 05/21/18 at 19:00; Stop 05/21/18 at 19:59; Status DC Aspirin (Children'S Aspirin) 81 mg DAILY PO Last administered on 05/22/18at 10: 32; Start 05/22/18 at 09:00 Metoprolol Tartrate (Lopressor) 25 mg DAILY PO ; Start 05/22/18 at 09:00 Atorvastatin Calcium (Lipitor) 80 mg QHS PO Last administered on 05/21/18at 21: 55; Start 05/21/18 at 21:00 Ticagrelor (Brilinta) 90 mg BID PO Last administered on 05/21/18at 21:55; Start 05/21/18 at 21:00 Pantoprazole Sodium (Protonix) 40 mg DAILYAC PO Last administered on 05/22/18at 06:16; Start 05/22/18 at 07:30 Diphenhydramine HCl (Benadryl) 25 mg PRN QHS PRN PO INSOMNIA Last administered on 05/21/18at 21:55; Start 05/21/18 at 19:45 Clonazepam (KlonoPIN) 0.5 mg PRN QHS PRN PO ANXIETY / AGITATION Last administered on 2/25/19at 21:55; Start 05/21/18 at 20:45 Sodium Chloride 1,000 ml @ 75 mls/hr 1X ONCE IV Last administered on at 11:57; Start 05/22/18 at 11:30; Stop 05/23/18 at 00:49 Iodixanol (Visipaque 320) 100 ml STK-MED ONCE .ROUTE ; Start 05/22/18 at 15:06; Stop 05/22/18 at 15:07; Status DC Lidocaine HCl (Xylocaine-Mpf 1% 2ml Vial) 2 ml STK-MED ONCE .ROUTE ; Start 05/22 at 15:06; Stop 05/22/18 at 15:07; Status DC Heparin Sodium/ Sodium Chloride 500 ml @ As Directed STK-MED ONCE .ROUTE ; Start 05/22/18 at 15:06; Stop 05/22/18 at 15:07; Status DC Fentanyl Citrate (Fentanyl 2ml Vial) 100 mcg STK-MED ONCE .ROUTE ; Start at 15:10; Stop 05/22/18 at 15:11; Status DC Midazolam HCl (Versed) 2 mg STK-MED ONCE .ROUTE ; Start 05/22/18 at 15:10; Stop 05/22/18 at 15:11; Status DC Heparin Sodium (Porcine) (Heparin Sodium) 10,000 unit STK-MED ONCE .ROUTE ; Start 05/22/18 at 15:10; Stop 05/22/18 at 15:11; Status DC Verapamil HCl (Verapamil) 5 mg STK-MED ONCE .ROUTE ; Start 05/22/18 at 15:10; Stop 05/22/18 at 15:11; Status DC Nitroglycerin (Nitroglycerin) 200 mcg STK-MED ONCE .ROUTE ; Start 05/22/18 at 15 :10; Stop 05/22/18 at 15:11; Status DC Lidocaine HCl (Lidocaine 1% 20ml Vial) 20 ml STK-MED ONCE .ROUTE ; Start at 15:47; Stop 05/22/18 at 15:48; Status DC Heparin Sodium/ Sodium Chloride (HEPARIN for ARTERIAL LINE FLUSH) 1,000 unit 1X ONCE IART Last administered on 05/22/18at 16:06; Start 05/22/18 at 16:00; Stop 05/22/18 at 16:15; Status DC Midazolam HCl (Versed) 2 mg 1X ONCE IV Last administered on 05/22/18at 16:07; Start 05/22/18 at 16:00; Stop 05/22/18 at 16:15; Status DC Fentanyl Citrate (Fentanyl 2ml Vial) 100 mcg 1X ONCE IV Last administered on at 16:07; Start 05/22/18 at 16:00; Stop 05/22/18 at 16:15; Status DC Iodixanol (Visipaque 320) 100 ml 1X ONCE IART Last administered on 05/22/18at 16:06; Start 05/22/18 at 16:00; Stop 05/22/18 at 16:15; Status DC Lidocaine HCl (Lidocaine 1% 20ml Vial) 20 ml 1X ONCE INJ Last administered on 05/22/18at 16:06; Start 05/22/18 at 16:00; Stop 05/22/18 at 16:15; Status DC Lidocaine HCl (Xylocaine-Mpf 1% 2ml Vial) 1 ml 1X ONCE INJ Last administered on 05/22/18at 16:07; Start 05/22/18 at 16:00; Stop 05/22/18 at 16:15; Status DC Sodium Chloride (Normal Saline Flush) 3 ml QSHIFT PRN IV AFTER MEDS AND BLOOD DRAWS; Start 05/22/18 at 17:00 Sodium Chloride 1,000 ml @ 60 mls/hr [id number] IV ; Start 05/22/18 at 16:59 Nitroglycerin (Nitrostat) 0.4 mg PRN Q5MIN PRN SL CHEST PAIN; Start 05/22/18 at 17:00 Morphine Sulfate (Morphine Sulfate) 2 mg PRN Q4HRS PRN IV PAIN Last administered on 05/22/18at 18:50; Start 05/22/18 at 18:45 Active Scripts Active [Pantoprazole] 40 MG Tablet.dr 40 Mg PO DAILYAC Brilinta (Ticagrelor) 60 Mg Tablet 90 Mg PO DAILY Metoprolol Tartrate 25 Mg Tablet 1 Tab PO DAILY Atorvastatin Calcium 80 Mg Tablet 1 Tab PO DAILY Aspirin 81 Mg Tab.chew 1 Tab PO DAILY Vitals/I & O Vital Sign - Last 24 Hours 05/21/18 05/21/18 05/21/18 05/21/18 20:00 20:12 20:13 20:25 Temp 97.7 97.7 Pulse 66 62 Resp 18 20 16 B/P (MAP) 108/51 (70) 111/73 (86) Pulse Ox 94 96 97 O2 Delivery Room Air Room Air Room Air Room Air 05/21/18 05/22/18 05/22/18 05/22/18 22:52 03:11 07:06 08:00 Temp 97.4 97.5 97.6 97.4 97.5 97.6 Pulse 62 63 51 Resp 18 16 16 B/P (MAP) 107/63 (78) 107/61 (76) 112/71 (85) Pulse Ox 95 97 98 O2 Delivery Room Air Room Air Room Air Room Air 05/22/18 05/22/18 05/22/18 05/22/18 11:00 16:07 16:13 16:30 Temp 97.9 97.9 Pulse 66 64 70 Resp 14 15 15 B/P (MAP) 111/64 (80) 103/70 (81) Pulse Ox 97 97 97 O2 Delivery Room Air Nasal Cannula Nasal Cannula O2 Flow Rate 2.0 2.0 05/22/18 05/22/18 05/22/18 05/22/18 16:37 16:45 17:00 17:15 Pulse 64 64 69 Resp 20 B/P (MAP) 107/67 (80) 113/71 (85) 121/69 (86) 05/22/18 05/22/18 05/22/18 17:45 18:45 18:50 Pulse 63 69 Resp 20 B/P (MAP) 129/73 (91) 135/80 (98) Intake and Output 05/21/18 05/21/18 05/22/18 15:00 23:00 07:00 Intake Total 800 ml 200 ml Balance 800 ml 200 ml BEN LEACH MD May 22, 2018 19:53
[2018-05-22] MEDS: ATORVASTATIN CALCIUM 40 MG TABLET. PO SCH (20:57)
[2018-05-22] MEDS: diphenhydrAMINE HCL 25 MG CAPSULE PO PRN (20:57)
[2018-05-23 03:00] VITALS: BP 106/61
[2018-05-23] MEDS: PANTOPRAZOLE 40 MG TABLET.DR. PO SCH (05:59)
[2018-05-23 07:25] VITALS: BP 111/72
[2018-05-23 09:28] VITALS: BP 111/72
[2018-05-23] MEDS: TICAGRELOR 90 MG TABLET. PO SCH (09:28)
[2018-05-23] MEDS: ASPIRIN CHEWABLE 81 MG TABLET. PO SCH (09:28)
[2018-05-23] MEDS: METOPROLOL TART IMMED RELEASE 25 MG TABLET. PO SCH (09:28)
[2018-05-23] MEDS: IV 1/2 NORMAL SALINE 1,000 ML IV SCH (09:39)
--- NOTE | 2018-05-23 10:22 | CARD ---
MR#: [id number] Date of Study: 05/23/2018 Ordering Physician: SHIVA EDOUARD, Referring Physician: DEAN MAY Tech: Kayla Torres APPROVED REPORT EXAM: Two-dimensional and M-mode echocardiogram with Doppler and color Doppler. Other Information Quality : GoodHR: 67bpm Rhythm : NSR INDICATION CAD Chest Pain 2D DIMENSIONS RVDd3.5 (2.9-3.5cm)Left Atrium(2D)3.4 (1.6-4.0cm) IVSd0.9 (0.7-1.1cm)Aortic Root(2D)3.3 (2.0-3.7cm) LVDd4.7 (3.9-5.9cm)LVOT Diameter2.2 (1.8-2.4cm) PWd1.0 (0.7-1.1cm)LVDs2.8 (2.5-4.0cm) FS (%) 39.9 %SV73.5 ml LVEF(%)70.4 (>50%) Aortic Valve AoV Peak Saqib.103.2cm/sAoV VTI16.6cm AO Peak GR.4.3mmHgLVOT Peak Saqib.106.0cm/s LVOT VTI 16.10cmAO Mean GR.2mmHg XAVIER (VMAX)2.89ap0NGX (VTI)3.68cm2 Mitral Valve MV E Hhhnyidd23.0cm/sMV DECEL [id number] MV A Xjaqjtgi07.6cm/sMV AQG35vx E/A Ratio1.2MVA (PHT)3.12cm2 TDI E/Lateral E'5.3E/Medial E'6.8 Pulmonary Valve PV Peak Njqskidm078.1cm/sPV Peak Grad.5mmHg Pulmonary Vein S1 Kjdfwjjg31.8cm/sD2 Imofjsrh40.8cm/s PVa [id number] LEFT VENTRICLE The left ventricle is normal size. There is normal left ventricular wall thickness. The left ventricu lar systolic function is normal. The Ejection Fraction is 55-60%. There is normal LV segmental wall m otion. The left ventricular diastolic function and filling is normal for age. RIGHT VENTRICLE The right ventricle is normal size. There is normal right ventricular wall thickness. The right ventr icular systolic function is normal. ATRIA The left atrium size is normal. The right atrium size is normal. The interatrial septum is intact wit h no evidence for an atrial septal defect or patent foramen ovale as noted on 2-D or Doppler imaging. AORTIC VALVE The aortic valve is normal in structure and function. Doppler and Color Flow revealed no significant aortic regurgitation. There is no significant aortic valvular stenosis. MITRAL VALVE The mitral valve is normal in structure and function. There is no evidence of mitral valve prolapse. There is no mitral valve stenosis. Doppler and Color Flow revealed no mitral valve regurgitation note d. TRICUSPID VALVE The tricuspid valve is normal in structure and function. Doppler and Color Flow revealed trace tricus pid regurgitation. There is no tricuspid valve stenosis. PULMONIC VALVE The pulmonary valve is normal in structure and function. Doppler and Color Flow revealed trace pulmon ic valvular regurgitation. GREAT VESSELS The aortic root is normal in size. The IVC was not visualized. PERICARDIAL EFFUSION There is no evidence of significant pericardial effusion. Critical Notification Critical Value: No <Conclusion> The left ventricular systolic function is normal. The Ejection Fraction is 55-60%. There is normal LV segmental wall motion. Trace tricuspid regurgitation. There is no evidence of significant pericardial effusion. Signed by : Geovany Montes De Oca, Electronically Approved : 05/23/2018 10:21:28
[2018-05-23] MEDS ORDERED: TIZA4TAB PO (10:49)
--- NOTE | 2018-05-23 11:10 | NUR ---
SS following for discharge planning. Discharge order on chart for home with self care. Pt is from home and currently on room air. No discharge needs noted at this time.
--- NOTE | 2018-05-23 11:14 | PDOC ---
CARDIO Progress Notes Date and Time Date of Service 05/23/2018 Time of Evaluation 1050 Subjective Subjective: No Chest Pain, No shortness of breath, No Palpitations, Other ( left shoulder pain with ROM) Vitals Vitals Vital Signs Date Time Temp Pulse Resp B/P (MAP) Pulse Ox O2 Delivery O2 Flow Rate FiO2 05/23/18 09:28 63 111/72 05/23/18 08:00 Room Air 05/23/18 07:25 98.2 16 97 98.2 05/22/18 16:13 2.0 Weight Weight [ ] Input and Output Intake and Output Intake and Output 05/23/18 07:00 Intake Total 560 ml Balance 560 ml Intake Oral 560 ml Physical Exam HEENT: Neck Supple W Full Motion Chest: Symmetric LUNGS: Clear to Auscultation Heart: S1S2, RRR (SR) Abdomen: Soft N/T Extremities: No Calf Tenderness Neurology: alert, oriented, follow commands Other Exams right groin arteriotomy site intact, no erythema, swelling, neurovascular status to bilateral LE intact Assessment Assessment 1. Chest pain: LHC due to UA features. LHC noted with patent stent to RCA. Pain possibly impingement syndrome to left shoulder. defer to PCP 2. HTN; well controlled 3. HLP: not on goal 4. CAD; stents in 2017 in [place] 5. Chronic Marijuana use: uses it for insomnia 6. Noncompliance: due previous lack of ins. stopped taking DAPT 1-2 month post PCI on 02/2017 Recommendations 1. ASA/plavix. high dose statin. Change low dose BB to lisinopril due to bradycardia episodes in the 40s, no symptoms. 2. follow up in office in 4 weeks. Encouraged compliance. marijuana cessation. HBPM. liids check in 6-8 weeks. Diet modification. SHIVA EDOUARD APRN May 23, 2018 11:14
--- NOTE | 2018-05-23 14:10 | NUR ---
Discharge Note: MICHELLE LAWRENCE CANTON Discharge instructions and discharge home medications reviewed with Patient and a copy given. All questions have been answered and understanding verbalized. Discharge teaching given to patient via cardiac cath rn line with outreach educator # [phone]. Patient was informed not to drive for 3 days because of his groin incision. Patient stated that he was driving his car home. This RN discussed the risks of driving in his current condition. Patient continued to persist that he drive home. I explained to him that if he was to experience any increased pain, redness, or swelling at his incision site to immediately come back to the hospital. Patients medications were called into the [facility] that [facility] requested. Patients incision site is C/D/I. Patient a&Ox4.
[2018-05-23] MEDS ORDERED: CLOP75TA PO (14:20)
[2018-05-23] MEDS ORDERED: LISI-338 PO (14:21)
--- NOTE | 2018-05-23 16:41 | PDOC3 ---
Discharge Summary Visit Information Date of Admission: May 21, 2018 Date of Discharge: May 23, 2018 Admitting Diagnosis: Chest pain Final Diagnosis Chest pain musculoskeletal in nature History fo CAD status post PCI and stentn and recent cardiac cath with patent stents Brief Hospital Course Allergies Allergies Coded Allergies Type Severity Reaction Last Updated Verified No Known Drug Allergies 05/31/17 No Vital Signs Vital Signs Date Time Temp Pulse Resp B/P (MAP) Pulse Ox O2 Delivery O2 Flow Rate FiO2 05/23/18 09:28 63 111/72 05/23/18 08:00 Room Air 05/23/18 07:25 98.2 16 97 98.2 05/22/18 16:13 2.0 Lab Results Laboratory Tests Test 05/21/18 18:04 05/21/18 18:05 05/21/18 19:43 05/21/18 21:55 White Blood Count 11.2 x10^3/uL (4.0-11.0) Red Blood Count 4.79 x10^6/uL (4.30-5.70) Hemoglobin 15.0 g/dL (13.0-17.5) Hematocrit 44.5 % (39.0-53.0) Mean Corpuscular Volume 93 fL (79-100) Mean Corpuscular Hemoglobin 31 pg (25-35) Mean Corpuscular Hemoglobin Concent 34 g/dL (31-37) Red Cell Distribution Width 12.8 % (11.5-14.5) Platelet Count 309 x10^3/uL (140-400) Neutrophils (%) (Auto) 59 % (31-73) Lymphocytes (%) (Auto) 31 % (24-48) Monocytes (%) (Auto) 6 % (0-9) Eosinophils (%) (Auto) 3 % (0-3) Basophils (%) (Auto) 1 % (0-3) Neutrophils # (Auto) 6.6 x10^3uL (1.8-7.7) Lymphocytes # (Auto) 3.4 x10^3/uL (1.0-4.8) Monocytes # (Auto) 0.7 x10^3/uL (0.0-1.1) Eosinophils # (Auto) 0.3 x10^3/uL (0.0-0.7) Basophils # (Auto) 0.1 x10^3/uL (0.0-0.2) Prothrombin Time 12.1 SEC (11.7-14.0) Prothromb Time International Ratio 0.9 (0.8-1.1) Sodium Level 138 mmol/L (136-145) Potassium Level 3.8 mmol/L (3.5-5.1) Chloride Level 101 mmol/L (98-107) Carbon Dioxide Level 28 mmol/L (21-32) Anion Gap 9 (6-14) Blood Urea Nitrogen 19 mg/dL (8-26) Creatinine 0.9 mg/dL (0.7-1.3) Estimated GFR (Cockcroft-Gault) 93.0 BUN/Creatinine Ratio 21 (6-20) Glucose Level 109 mg/dL (70-99) Calcium Level 9.0 mg/dL (8.5-10.1) Total Bilirubin 0.3 mg/dL (0.2-1.0) Aspartate Amino Transf (AST/SGOT) 18 U/L (15-37) Alanine Aminotransferase (ALT/SGPT) 41 U/L (16-63) Alkaline Phosphatase 79 U/L (46-116) Troponin I Quantitative < 0.017 ng/mL (0.000-0.055) < 0.017 ng/mL (0.000-0.055) CV-Jmd-A-Type Natriuretic Peptide 25 pg/mL (0-124) Total Protein 8.2 g/dL (6.4-8.2) Albumin 3.7 g/dL (3.4-5.0) Albumin/Globulin Ratio 0.8 (1.0-1.7) Urine Opiates Screen Neg (NEG) Urine Methadone Screen Neg (NEG) Urine Barbiturates Neg (NEG) Urine Phencyclidine Screen Neg (NEG) Urine Amphetamine/Methamphetamine Neg (NEG) Urine Benzodiazepines Screen Neg (NEG) Urine Cocaine Screen Neg (NEG) Urine Cannabinoids Screen Pos (NEG) Urine Ethyl Alcohol Neg (NEG) Thyroid Stimulating Hormone (TSH) 3.835 uIU/mL (0.358-3.74) Test 05/22/18 01:00 Troponin I Quantitative < 0.017 ng/mL (0.000-0.055) Triglycerides Level 487 mg/dL (0-150) Cholesterol Level 261 mg/dL (0-200) LDL Cholesterol, Calculated 136 mg/dL (0-100) VLDL Cholesterol, Calculated 97 mg/dL (0-40) Non-HDL Cholesterol Calculated 233 mg/dL (0-129) HDL Cholesterol 28 mg/dL (40-60) Cholesterol/HDL Ratio 9.3 Brief Hospital Course Mr. Benito is a 42 old male who presented with past medical history of CAD who had a PCI in the past and had a stent placed. Patient underwnet evaluation by carediology inclding a an ECHO with the following results: <Conclusion> The left ventricular systolic function is normal. The Ejection Fraction is 55-60%. There is normal LV segmental wall motion. Trace tricuspid regurgitation. There is no evidence of significant pericardial effusion. Signed by : Geovany Montes De Oca, Electronically Approved : 05/23/2018 10:21:28 Patient was taken to the cardiac cardiovascular lab director and the following findings were noted. : PROCEDURE NARRATIVE After explaining the risks, benefits and alternative options, informed consent was obtained from patient. Patient was brought to the cardiac [place] Worker and right wrist was prepped and draped in the usual fashion after confirming a positive modified Macho's test. Arterial access was obtained in the right radial artery but attempts to advance wire past the midportion of right forearm were unsuccessful probably secondary to scarring he had from previous surgery in that area. Hence a decision was made to switch access site the right groin. 20 mL of 2% lidocaine was infiltrated into the skin and subcutaneous tissues for local anesthesia. Arterial access was obtained in the right common femoral artery and a 6 [place] sheath was inserted. 6 [place] JL4 and 6 [place] JR4 catheters were used to perform selective angiography of the left and right coronary arteries. 6 [place] pigtail catheter was used to perform left ventriculography. Patient tolerated the procedure well. Hemostasis was achieved using mynx closure device. There were no immediate complications. The following findings were noted. FINDINGS 1. Hemodynamics: Left ventricular end-diastolic pressure of 13 mmHg. No pullback gradient across the aortic valve. 2. Left ventriculography: Normal left ventricle systolic function with ejection fraction estimated at 60%. No significant mitral regurgitation seen. 3. Coronary angiography: a. The left main coronary artery arose from the left sinus of Valsalva, gave rise to the left anterior descending and left circumflex arteries and did not show any significant stenosis. b. The left anterior descending artery did not show any significant stenosis. c. The left circumflex artery did not show any significant stenosis. d. The right coronary artery was a large and dominant vessel arising from the right sinus of Valsalva that showed 30% stenosis in the proximal segment and widely patent stent in the midsegment. Conclusion 1. No significant coronary artery disease with widely patent previously placed stent in the right coronary artery. 2. Normal left ventricle systolic function with ejection fraction estimated at 60%. Recommendations Medical Therapy Signed by : Geovany Montes De Oca, Electronically Approved : 05/22/2018 16:46:22 He was deemed appropriate for discharge, he works in the [employer] adn seems that his discomfort stems from repetitive movement. I have offered a muscle relaxant and he will try the medication moving forward he has requested to have off from work until Monday. He may return to work with no restrictions. Gen.: well-developed well-nourished in no apparent distress Head: Normal shape atraumatic Eyes: Pupils equal reactive to light and accommodation, normal conjunctivae and lids Ears: Normal shape Nose: Normal shape no trauma Mouth: No exudates of the back of throat no thrush no lesions Neck: Supple no JVD no carotid bruit or lymphadenopathy no thyromegaly Chest: Lungs clear to auscultation with good inspiratory effort no crackles rales or rhonchi Cardiovascular: S1-S2 regular rhythm no murmurs gallops or rubs Abdomen: Bowel sounds present soft nontender no hepatosplenomegaly appreciated sign Extremities: No clubbing no cyanosis no edema peripheral pulses palpated bilaterally Neurological: Alert awake oriented in person time place and situation, cranial nerves II through XII intact, no motor or sensory deficits appreciated Psych: Appropriate mood, cooperative Discharge Information Condition at Discharge: Improved Follow Up: Weeks Disposition/Orders: D/C to Home Scheduled Aspirin (Aspirin) 81 Mg Tab.chew, 1 TAB PO DAILY, #30 Ref 9 Prescribed by: DARRYL SERVIN on 06/02/171031 Last Action: Continued on 05/21/181941 by DEAN MAY Atorvastatin Calcium (Atorvastatin Calcium) 80 Mg Tablet, 1 TAB PO DAILY, #30 Ref 9 Prescribed by: DARRYL SERVIN on 06/02/171031 Last Action: Converted on 05/21/181941 by DEAN MAY Clopidogrel Bisulfate (Clopidogrel) 75 Mg Tablet, 75 MG PO DAILY for Blood Thinner, #30 Ref 0 (Reported) Entered as Reported by: ROASNA GOYAL on 05/23/18 1420 Lisinopril (Lisinopril) 5 Mg Tablet, 5 MG PO DAILY for FOR HYPERTENSION, #30 Ref 0 (Reported) Entered as Reported by: ROSANA GOYAL on 05/23/18 1421 [Pantoprazole] 40 MG TABLET.DR, 40 MG PO DAILYAC, #30 Ref 5 Prescribed by: DARRYL SERVIN on 06/02/17 1033 Last Action: Converted on 05/21/181941 by DEAN MAY Scheduled PRN Tizanidine Hcl (Tizanidine Hcl) 4 Mg Tablet, 4 MG PO TID PRN for MUSCLE SPASMS for 30 Days, #90 Prescribed by: BEN LEACH MD on 05/23/18 1049 BEN LEACH MD May 23, 2018 16:41
[2018-05-24] MEDS ORDERED: CLOPIDOGREL BISULFATE 75 MG TABLET PO SCH (08:00)
[2018-05-24] MEDS ORDERED: LISINOPRIL 5 MG TABLET. PO SCH (09:00)
== END 2018-05-23 15:00 | disposition home or self-care (01) | DRG 287 ==
LOC: ER 17:42 → 2 NORTH 18:00
PROVIDERS: ADMIT Internal Medicine; ATTEND Internal Medicine
PROC: 4A023N7 Measurement of Cardiac Sampling and Pressure, Left Heart, Percutaneous Approach (ICD-10-PCS; principal; 2018-05-22)
PROC: B2111ZZ Fluoroscopy of Multiple Coronary Arteries using Low Osmolar Contrast (ICD-10-PCS; 2018-05-22)
PROC: B2151ZZ Fluoroscopy of Left Heart using Low Osmolar Contrast (ICD-10-PCS; 2018-05-22)
DX: R07.89 Other chest pain (principal); I10 Essential (primary) hypertension; E78.5 Hyperlipidemia, unspecified; F32.9 Major depressive disorder, single episode, unspecified; M19.90 Unspecified osteoarthritis, unspecified site; I25.119 Atherosclerotic heart disease of native coronary artery with unspecified angina pectoris; G47.00 Insomnia, unspecified; F12.90 Cannabis use, unspecified, uncomplicated; R00.1 Bradycardia, unspecified; D72.829 Elevated white blood cell count, unspecified; Z95.5 Presence of coronary angioplasty implant and graft; Z91.19 Patient's noncompliance with other medical treatment and regimen; Z87.891 Personal history of nicotine dependence; Z82.49 Family history of ischemic heart disease and other diseases of the circulatory system
CPT/HCPCS: 36415; 71045; 80053; 80061; 80307; 83880; 84443; 84484; 85025; 85610; 93005; 93306; 93458; 96374; 99152; 99153; C1760; C1769; C1892; G0269; J1644; J2250; J2270; J3010; J7030; Q0163; Q9967; 99285-25; C1771

== ENCOUNTER → 2019-01-14 | Outpatient (CLI) | payer OTHER ==
[~2019-01-14] MED LIST changes: +CLOP75TA PO; +LISI-338 PO; +REGADENOSON 0.4 MG/5 ML DISP.SYRIN. IV ONE; +TIZA4TAB2 PO
[2019-01-14 09:29] LABS: CHOLESTEROL/HDL RATIO 4.4
--- NOTE | 2019-01-14 13:27 | RAD ---
MR#: [id number] Date of Study: 01/14/2019 Ordering Physician: LILIBETH TATE Referring Physician: TYRONE ALVAREZ Tech: RT Selena Drake) (N) APPROVED REPORT Test Type: Pharmacological Stress Nurse/Tech: Brandy Francisco R.N. Test Indications: CAD,syncope, dizziness Cardiac History: CAD, heart cath <6 months ago & 2017 Medications: Zocor Medical History: See Electronic Medical Record Resting ECG: SB w/ very sligh ST elevation <1mm in leads II,III,AVF,V2-V6 Resting Heart Rate: 54 bpm Resting Blood Pressure: 109/64mmHg Pretest Chest Pain: No chest pain Nurse/Tech Notes S1S2, lungs CTA Consent: The procedure was explained to the patient in lay terms. Informed consent was witnessed. Dave eout was entered into [employer]. History and Stress Test performed by RT Selena Drake) (N) Pharm. Details Pharmacologic stress testing was performed using 0.4mg per 5ml of regadenoson given intravenously ove r 7-10 seconds. Stress Symptoms SOA, flushed, nausea, feels bad POST EXERCISE Reason for Termination: Infusion complete Max HR: 101 bpm Max Blood Pressure: 113/66mmHg Blood Pressure response to exercise: Normal blood pressure response during stress. Heart Rate response to exercise: wnl Chest Pain: No. Arrhythmia: No. ST Change: No. no changes from slighlty abnormal baseline INTERPRETATION Stress EKG Conclusion: Baseline EKG showed sinus rhythm. No ischemic changes at peak stress. No arr hythmias. Imaging Protocol IMAGE PROTOCOL: Rest Tc-99m/stress Tc-99m 1 day Rest: Stress: Viability: Radiopharm.Tc99m [id number] Sestamibi Ffuc76cJo 32mCi Duration 15min. 10min. Img Date 01/14/2019 01/14/2019 STRESS DATA End Diast. Vol.116.0mlAv. Heart Rate74.0bpm End Syst. Vol.35.0mlCO Index BSA0.0L/min Myocardial Ewfv430.0gEject. Ikzsawck88.0% Stress Rates Pk. Fill Rate3.45EDV/secLVtime Pk. Fill 173.50msec Pk. Empty Rate3.46ESV/secLVtime Pk. Mqmlp019.28msec /3 Pk. Fill1.21EDV/sec Stress Scores Regional WT0.00Summed WT1.00 Regional WM0.00Summed WM6.00 Study quality was good. Left Ventricular size was Normal at Rest and Stress. Lung uptake was . Left Ventricular ejection fraction is 70%. The rest and stress images show normal perfusion, normal contraction and thickening. LV Perf. Quant 17 Seg. SSS0.00 17 Seg. SRS0.00 17 Seg. SDS0.00 Stress Defect Extent (% LAD)0.00Rest Defect Extent (% LAD)0.00Rev. Defect Extent (% LAD)0.00 Stress Defect Extent (% LCX) 0.00Rest Defect Extent (% LCX)0.00Rev. Defect Extent (% LCX)0.00 Stress Defect Extent (% RCA)0.00Rest Defect Extent (% RCA)0.00Rev. Defect Extent (% RCA)0.00 Stress Defect Extent (% RAYA)0.00Rest Defect Extent (% RAYA)0.00Rev. Defect Extent (% RAYA)0.00 Conclusion 1. Regadenoson cardioisotope stress test did not show any evidence of ischemia or infarct. 2. Normal left ventricular systolic function with ejection fraction calculated at 70%. 3. Low risk for cardiac events. Signed by : Lilibeth Tate, Electronically Approved : 01/14/2019 13:26:52
== END | disposition home or self-care (01) ==
LOC: NM 08:40
PROVIDERS: ATTEND Internal Medicine Cardiovascular Disease
DX: I25.10 Atherosclerotic heart disease of native coronary artery without angina pectoris (principal); E78.5 Hyperlipidemia, unspecified
CPT/HCPCS: 36415; 78452; 80061; 93017; A9500; J2785

== ENCOUNTER 2019-04-05 13:14 | Emergency (ER) | payer OTHER ==
[~2019-04-05 13:14] MED LIST changes: -REGADENOSON 0.4 MG/5 ML DISP.SYRIN. IV ONE
--- NOTE | 2019-04-05 13:36 | EKG ---
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
--- NOTE | 2019-04-05 13:46 | RAD ---
EXAM: Chest, single view. HISTORY: Cough. COMPARISON: 05/21/2018. FINDINGS: A frontal view of the chest obtained. There is no infiltrate, pleural effusion or pneumothorax. The heart is normal in size. IMPRESSION: No acute pulmonary finding. Electronically signed by: Roula May MD (04/05/2019 1:43 PM) [facility]
[2019-04-05 13:47] LABS: BASO # 0.1 x10^3/uL (0.0-0.2); BASO % 1 % (0-3); EOS # 0.2 x10^3/uL (0.0-0.7); EOS % 2 % (0-3); HEMATOCRIT 45.1 % (39.0-53.0); HEMOGLOBIN 15.1 g/dL (13.0-17.5); LYMPH # 2.2 x10^3/uL (1.0-4.8); LYMPH % 26 % (24-48); MEAN CORPUSCULAR HEMOGLOBIN 31 pg (25-35); MEAN CORPUSCULAR HGB CONC 34 g/dL (31-37); MEAN CORPUSCULAR VOLUME 93 fL (79-100); MONO # 0.7 x10^3/uL (0.0-1.1); MONO % 8 % (0-9); NEUT # 5.3 x10^3/uL (1.8-7.7); NEUT % 63 % (31-73); PLATELET COUNT 324 x10^3/uL (140-400); RED BLOOD COUNT 4.86 x10^6/uL (4.30-5.70); RED CELL DISTRIBUTION WIDTH 12.5 % (11.5-14.5); WHITE BLOOD COUNT 8.5 x10^3/uL (4.0-11.0)
[2019-04-05 14:00] VITALS: BP 102/68
[2019-04-05 14:02] LABS: CALCIUM 9.4 mg/dL (8.5-10.1); CREATININE 0.7 mg/dL (0.7-1.3); GFR 123.7; POTASSIUM 4.2 mmol/L (3.5-5.1)
[2019-04-05 14:06] LABS: ALBUMIN 4.3 g/dL (3.4-5.0); ALBUMIN/GLOBULIN RATIO 1.2 (1.0-1.7); TOTAL BILIRUBIN 0.9 mg/dL (0.2-1.0); TOTAL PROTEIN 7.9 g/dL (6.4-8.2)
[2019-04-05] MEDS ORDERED: KETOROLAC 15 MG/ML VIAL. IVP ONE (14:15)
[2019-04-05] MEDS ORDERED: CEPH-264 PO (14:18)
[2019-04-05] MEDS ORDERED: LORA-434 PO (14:18)
[2019-04-05] MEDS ORDERED: TRAM50TA PO (14:19)
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
== END 2019-04-05 14:25 | disposition home or self-care (01) ==
LOC: ER 13:14
DX: J40 Bronchitis, not specified as acute or chronic (principal); R09.1 Pleurisy; F41.9 Anxiety disorder, unspecified; I25.2 Old myocardial infarction; Z95.5 Presence of coronary angioplasty implant and graft
CPT/HCPCS: 36415; 71045; 80053; 84484; 85025; 93005; 96374; 99285; J1885

== ENCOUNTER 2019-09-27 19:21 | Emergency (ER) | payer OTHER ==
[~2019-09-27] VITALS: Ht 162.6 cm; Wt 72.0 kg
[~2019-09-27 19:21] MED LIST changes: +CEPH-264 PO; +LORA-434 PO; +TRAM50TA PO
[2019-09-27 19:59] LABS: BASO # 0.1 x10^3/uL (0.0-0.2); BASO % 1 % (0-3); EOS # 0.4 x10^3/uL (0.0-0.7); EOS % 4 % (0-3); HEMATOCRIT 41.4 % (39.0-53.0); LYMPH # 2.2 x10^3/uL (1.0-4.8); LYMPH % 22 % (24-48); MEAN CORPUSCULAR HEMOGLOBIN 32 pg (25-35); MEAN CORPUSCULAR HGB CONC 34 g/dL (31-37); MEAN CORPUSCULAR VOLUME 94 fL (79-100); MONO # 0.8 x10^3/uL (0.0-1.1); MONO % 8 % (0-9); NEUT # 6.8 x10^3/uL (1.8-7.7); NEUT % 66 % (31-73); PLATELET COUNT 302 x10^3/uL (140-400); RED BLOOD COUNT 4.41 x10^6/uL (4.30-5.70); RED CELL DISTRIBUTION WIDTH 12.4 % (11.5-14.5); WHITE BLOOD COUNT 10.3 x10^3/uL (4.0-11.0)
[2019-09-27] MEDS ORDERED: LIDO:MAALOX 1:1 20 ML SINGLE DOSE. SWSW ONE (20:00)
[2019-09-27] MEDS ORDERED: FAMOTIDINE 20 MG/2 ML VIAL IVP ONE (20:00)
[2019-09-27 20:07] LABS: CALCIUM 8.5 mg/dL (8.5-10.1); CREATININE 0.9 mg/dL (0.7-1.3); GFR 92.1; POTASSIUM 4.1 mmol/L (3.5-5.1)
[2019-09-27 20:12] LABS: ALBUMIN 3.7 g/dL (3.4-5.0); TOTAL BILIRUBIN 0.8 mg/dL (0.2-1.0); TOTAL PROTEIN 7.3 g/dL (6.4-8.2)
[2019-09-27 20:15] LABS: BILIRUBIN,URINE NEGATIVE (NEG); CLARITY,URINE CLEAR; COLOR,URINE YELLOW; NITRITE,URINE NEGATIVE (NEG); PROTEIN,URINE NEGATIVE (NEG-TRACE)
[2019-09-27 20:22] LABS: BACTERIA,URINE 0 /HPF (0-FEW)
[2019-09-27 20:23] LABS: RBC,URINE OCC /HPF (0-2)
--- NOTE | 2019-09-27 20:32 | RAD ---
Exam: Chest 2 views INDICATION: Pain TECHNIQUE: Frontal and lateral views of the chest Comparisons: 04/05/2019 FINDINGS: The cardiomediastinal silhouette and pulmonary vessels are within normal limits. The lung and pleural spaces are clear. IMPRESSION: No acute cardiopulmonary process. Electronically signed by: Jerome Mcfarlane MD (09/27/2019 8:29 PM) [id number]
--- NOTE | 2019-09-27 20:34 | PHYS DOC ---
Past Medical History Past Medical History: [place], Other Additional Past Medical Histor: cardiac stent Past Surgical History: Other Additional Past Surgical Histo: cardiac stent Smoking Status: Current Every Day Smoker Alcohol Use: None Drug Use: Marijuana General Adult EDM: Chief Complaint: ABDOMINAL PAIN HPI: HPI: Patient is a 44 year old male presents to the ED with a chief complaint of abdominal pain for the last 3 days. Patient states that the pain is on and off and is worse after eating. Patient complains that the pain is in his upper abdomen. Patient denies any radiation of his pain. Patient does admit to smoking marijuana. Patient states that the pain has been on and off. Review of Systems: Review of Systems: Constitutional: Denies fever or chills. [] Eyes: Denies change in visual acuity. [] HENT: Denies nasal congestion or sore throat. [] Respiratory: Denies cough or shortness of breath. [] Cardiovascular: Denies chest pain or edema. [] GI: Complains of upper abdominal tenderness [] : Denies dysuria. [] Neurologic: Denies headache, focal weakness or sensory changes. [] Heart Score: Risk Factors: Risk Factors: DM, Current or recent (<one month) smoker, HTN, HLP, family history of CAD, obesity. Risk Scores: Score 0 - 3: 2.5% MACE over next 6 weeks - Discharge Home Score 4 - 6: 20.3% MACE over next 6 weeks - Admit for Clinical Observation Score 7 - 10: 72.7% MACE over next 6 weeks - Early Invasive Strategies Current Medications: Current Medications Medications (Trade) Dose Ordered Sig/[facility] Start Time Stop Time Status Last Admin Dose Admin Famotidine (Pepcid Vial) 20 mg 1X ONCE 09/27/19 20:00 09/27/19 20:01 DC 09/27/19 20:07 20 MG Multi-Ingredient Mouthwash/Gargle (Gi Cocktail) 20 ml 1X ONCE 09/27/19 20:00 09/27/19 20:01 DC 09/27/19 20:07 20 ML Allergies: Allergies: Allergies Coded Allergies Type Severity Reaction Last Updated Verified No Known Drug Allergies 05/31/17 No Physical Exam: PE: Constitutional: Well developed, well nourished, no acute distress, non-toxic appearance. [] HENT: Normocephalic, atraumatic Eyes: EOMI Neck: Normal range of motion, Supple Cardiovascular:Heart rate regular rhythm Lungs & Thorax: Bilateral breath sounds clear to auscultation [] Abdomen: Mild upper abdominal tenderness. No focal abdominal tenderness. Extremities: No tenderness, ROM intact Neurologic: Alert and oriented X 3 Current Patient Data: Labs: Laboratory Tests Test 09/27/19 19:50 09/27/19 20:05 White Blood Count 10.3 x10^3/uL (4.0-11.0) Red Blood Count 4.41 x10^6/uL (4.30-5.70) Hemoglobin 14.0 g/dL (13.0-17.5) Hematocrit 41.4 % (39.0-53.0) Mean Corpuscular Volume 94 fL (79-100) Mean Corpuscular Hemoglobin 32 pg (25-35) Mean Corpuscular Hemoglobin Concent 34 g/dL (31-37) Red Cell Distribution Width 12.4 % (11.5-14.5) Platelet Count 302 x10^3/uL (140-400) Neutrophils (%) (Auto) 66 % (31-73) Lymphocytes (%) (Auto) 22 % (24-48) L Monocytes (%) (Auto) 8 % (0-9) Eosinophils (%) (Auto) 4 % (0-3) H Basophils (%) (Auto) 1 % (0-3) Neutrophils # (Auto) 6.8 x10^3/uL (1.8-7.7) Lymphocytes # (Auto) 2.2 x10^3/uL (1.0-4.8) Monocytes # (Auto) 0.8 x10^3/uL (0.0-1.1) Eosinophils # (Auto) 0.4 x10^3/uL (0.0-0.7) Basophils # (Auto) 0.1 x10^3/uL (0.0-0.2) Sodium Level 133 mmol/L (136-145) L Potassium Level 4.1 mmol/L (3.5-5.1) Chloride Level 99 mmol/L (98-107) Carbon Dioxide Level 26 mmol/L (21-32) Anion Gap 8 (6-14) Blood Urea Nitrogen 19 mg/dL (8-26) Creatinine 0.9 mg/dL (0.7-1.3) Estimated GFR (Cockcroft-Gault) 92.1 BUN/Creatinine Ratio 21 (6-20) H Glucose Level 106 mg/dL (70-99) H Lactic Acid Level 0.8 mmol/L (0.4-2.0) Calcium Level 8.5 mg/dL (8.5-10.1) Total Bilirubin 0.8 mg/dL (0.2-1.0) Aspartate Amino Transferase (AST) 32 U/L (15-37) Alanine Aminotransferase (ALT) 90 U/L (16-63) H Alkaline Phosphatase 93 U/L (46-116) Troponin I Quantitative < 0.017 ng/mL (0.000-0.055) Total Protein 7.3 g/dL (6.4-8.2) Albumin 3.7 g/dL (3.4-5.0) Albumin/Globulin Ratio 1.0 (1.0-1.7) Lipase 87 U/L (73-393) Urine Collection Type Unknown Urine Color Yellow Urine Clarity Clear Urine pH 6.0 (<5.0-8.0) Urine Specific [place] 1.025 (1.000-1.030) Urine Protein Negative mg/dL (NEG-TRACE) Urine Glucose (UA) Negative mg/dL (NEG) Urine Ketones (Stick) Negative mg/dL (NEG) Urine Blood Negative (NEG) Urine Nitrite Negative (NEG) Urine Bilirubin Negative (NEG) Urine Urobilinogen Dipstick 1.0 mg/dL (0.2 mg/dL) Urine Leukocyte Esterase Trace (NEG) Urine RBC Occ /HPF (0-2) Urine WBC 5-10 /HPF (0-4) Urine Bacteria 0 /HPF (0-FEW) Urine Mucus Mod /LPF Laboratory Tests 09/27/19 19:50 Laboratory Tests 09/27/19 19:50 Vital Signs: Vital Signs Date Time Temp Pulse Resp B/P (MAP) Pulse Ox O2 Delivery O2 Flow Rate FiO2 09/27/19 20:30 68 18 92/69 (77) 99 Room Air 09/27/19 19:28 97.9 97.9 EKG: EKG: EKG interpretation: 19: 40 on 09/27/2019 HR: 77 Sinus rhythm Regular intervals Normal axis Nonspecific ST changes No STEMI Radiology/Procedures: Radiology/Procedures: [] Impression: CXR IMPRESSION: No acute cardiopulmonary process. Course & Med Decision Making: Course & Med Decision Making Pertinent Labs and Imaging studies reviewed. (See chart for details) Ordered labs, chest x-ray, EKG, GI cocktail, IV Pepcid. Labs are within normal limits. Troponin is negative. EKG does not show any acute changes. Chest x-ray does not show any acute disease. Patient states that he is feeling better after the medication. Patient requests a work off note. Discussed results and plan of care with patient. Patient is instructed to follow up with PCP in one to 2 days. Appropriate discharge instructions given to patient to return to the ED or to seek immediate medical evaluation. Patient is instructed to return to the ED if symptoms worsen or if any concerns. Dragon Disclaimer: [employer] Disclaimer: This electronic medical record was generated, in whole or in part, using a voice recognition dictation system. Departure Departure Impression: Primary Impression: GERD (gastroesophageal reflux disease) Additional Impression: Gastritis Disposition: 01 HOME, SELF-CARE Condition: STABLE Referrals: UNKNOWN PCP NAME (PCP) Patient Instructions: Gastritis, Adult, Gastroesophageal Reflux Disease, Adult Additional Instructions: Discussed results and plan of care with patient. Patient is instructed to follow up with PCP in one to 2 days. Appropriate discharge instructions given to patient to return to the ED or to seek immediate medical evaluation. Patient is instructed to return to the ED if symptoms worsen or if any concerns. Scripts Sucralfate (CARAFATE) 1 Gm Tablet 1 GM PO BID for 14 Days, #28 TAB Prov: DESTIN IRVIN DO 09/27/19 Famotidine (PEPCID) 20 Mg Tablet 20 MG PO HS for 14 Days, #14 TAB Prov: DESTIN IRVIN DO 09/27/19 Justicifation of Admission Dx: Justifications for Admission: Justification of Admission Dx: No DESTIN IRVIN DO Sep 27, 2019 20:34
[2019-09-27] MEDS ORDERED: FAMO-63 PO (21:04)
[2019-09-27] MEDS ORDERED: SUCR1TAB35 PO (21:04)
[2019-09-27 21:23] VITALS: BP 109/62
--- NOTE | 2019-10-01 12:59 | EKG ---
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
== END 2019-09-27 21:30 | disposition home or self-care (01) ==
LOC: ER 19:21
DX: K21.9 Gastro-esophageal reflux disease without esophagitis (principal); K29.70 Gastritis, unspecified, without bleeding; F17.200 Nicotine dependence, unspecified, uncomplicated; I25.2 Old myocardial infarction; Z95.5 Presence of coronary angioplasty implant and graft
CPT/HCPCS: 36415; 71046; 80053; 81001; 83605; 83690; 84484; 85025; 87086; 93005; 96374; 99285; J3490

== ENCOUNTER 2020-08-07 09:39 | Emergency (ER) | payer OTHER ==
[~2020-08-07] VITALS: Ht 160 cm; Wt 70.4 kg
[~2020-08-07 09:39] MED LIST changes: +DOCU-153 PO; +FAMO-63 PO; -LISI-338 PO; +LISI-517 PO; +MAG30ORA2 PO; +SUCR1TAB35 PO
[2020-08-07] MEDS ORDERED: ORPH100T PO (11:06)
[2020-08-07] MEDS ORDERED: HYDR-2759 PO (11:06)
[2020-08-07] MEDS ORDERED: PRED20TA PO (11:06)
--- NOTE | 2020-08-07 11:07 | PHYS DOC ---
Past Medical History Past Medical History: High Cholesterol, [place], Other Additional Past Medical Histor: cardiac stent Past Surgical History: Other Additional Past Surgical Histo: cardiac stent Smoking Status: Current Every Day Smoker Alcohol Use: None Drug Use: Marijuana General Adult EDM: Chief Complaint: NECK PAIN HPI: HPI: Patient is a 45 year old [f__sex] who presents with [] Review of Systems: Review of Systems: Constitutional: Denies fever or chills Eyes: Denies redness or eye pain HENT: Denies nasal congestion or sore throat Respiratory: Denies cough or shortness of breath Cardiovascular: Denies chest pain or palpitations GI: Denies abdominal pain, nausea, or vomiting : Denies dysuria or hematuria Musculoskeletal: Denies back pain or joint pain Integument: Denies rash or skin lesions Neurologic: Denies headache, focal weakness or sensory changes Complete systems were reviewed and found to be within normal limits, except as documented in this note. Heart Score: C/O Chest Pain: No HEART Score for Chest Pain: HEART Score for Chest Pain Response (Comments) Value History Slighlty/Non-Suspicious 0 ECG Normal 0 Age < 45 0 Risk Factors 1 or 2 Risk Factors 1 Total 1 Risk Factors: Risk Factors: DM, Current or recent (<one month) smoker, HTN, HLP, family history of CAD, obesity. Risk Scores: Score 0 - 3: 2.5% MACE over next 6 weeks - Discharge Home Score 4 - 6: 20.3% MACE over next 6 weeks - Admit for Clinical Observation Score 7 - 10: 72.7% MACE over next 6 weeks - Early Invasive Strategies Allergies: Allergies: Allergies Coded Allergies Type Severity Reaction Last Updated Verified No Known Drug Allergies 05/31/17 No Physical Exam: PE: Constitutional: Well developed, well nourished, no acute distress, non-toxic appearance. [] HENT: Normocephalic, atraumatic, bilateral external ears normal, oropharynx moist, no oral exudates, nose normal. [] Eyes: PERRLA, EOMI, conjunctiva normal, no discharge. [] Neck: Normal range of motion, no tenderness, supple, no stridor. [] Cardiovascular:Heart rate regular rhythm, no murmur [] Lungs & Thorax: Bilateral breath sounds clear to auscultation [] Abdomen: Bowel sounds normal, soft, no tenderness, no masses, no pulsatile masses. [] Skin: Warm, dry, no erythema, no rash. [] Back: No tenderness, no CVA tenderness. [] Extremities: No tenderness, no cyanosis, no clubbing, ROM intact, no edema. [] Neurologic: Alert and oriented X 3, normal motor function, normal sensory function, no focal deficits noted. [] Psychologic: Affect normal, judgement normal, mood normal. [] Current Patient Data: Vital Signs: Vital Signs Date Time Temp Pulse Resp B/P (MAP) Pulse Ox O2 Delivery O2 Flow Rate FiO2 08/07/20 10:13 98.1 72 18 135/70 (91) 98 Room Air 98.1 EKG: EKG: @1013 NSR at 63bpm, NO ST elevation, QRS 86ms, QT/QTc 374/386ms, no specific t wave inversion III Radiology/Procedures: Radiology/Procedures: [] Course & Med Decision Making: Course & Med Decision Making Patient stable for discharge with outpatient follow-up with PCP. Discussed findings and plan with patient, who acknowledges understanding and agreement. Dragon Disclaimer: [employer] Disclaimer: This electronic medical record was generated, in whole or in part, using a voice recognition dictation system. Departure Departure Impression: Primary Impression: Cervical radiculopathy Disposition: HOME / SELF CARE / HOMELESS Condition: STABLE Referrals: SHAD BABIN MD (PCP) ROSANA BOLTON MD Patient Instructions: Cervical Radiculopathy, [id number] Additional Instructions: May also take over the counter Ibuprofen or Naproxen as needed for pain. Scripts Hydrocodone/Acetaminophen (Hydrocodone-Acetamin 5-325 mg) 1 Each Tablet 0.5-1 EACH PO Q4-6HRS PRN for PAIN, #10 TAB Prov: SHAD CHILDERS DO 08/07/20 Prednisone (PREDNISONE) 20 Mg Tablet 2 TAB PO DAILY for 4 Days, #8 TAB Start this prescription tomorrow, Monday08/08/20 Prov: SHAD CHILDERS DO 08/07/20 Orphenadrine Citrate (ORPHENADRINE CITRATE) 100 Mg Tablet.er 100 MG PO BID PRN for MUSCLE PAIN, #14 TAB Prov: SHAD CHILDERS DO 08/07/20 SHAD CHILDERS DO August 07, 2020 11:07
[2020-08-07 11:09] VITALS: BP 117/70
[2020-08-07] MEDS ORDERED: KETOROLAC 30 MG/ML VIAL. IM ONE (11:15)
[2020-08-07] MEDS ORDERED: DEXAMETHASONE 4 MG TABLET PO ONE (11:15)
--- NOTE | 2020-08-07 18:46 | EKG ---
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
== END 2020-08-07 11:30 | disposition home or self-care (01) ==
LOC: ER 09:39
DX: M54.12 Radiculopathy, cervical region (principal); E78.00 Pure hypercholesterolemia, unspecified; I25.2 Old myocardial infarction; F17.200 Nicotine dependence, unspecified, uncomplicated; Z95.5 Presence of coronary angioplasty implant and graft
CPT/HCPCS: 93005; 96372; 99283; J1885

== ENCOUNTER 2020-11-16 22:11 | Emergency (ER) | payer OTHER ==
[~2020-11-16] VITALS: Ht 162.6 cm; Wt 78.0 kg
[~2020-11-16 22:11] MED LIST changes: +DOCU-148 PO; -DOCU-153 PO; +HYDR-2759 PO; +ORPH100T PO; +PRED20TA PO
[2020-11-17] MEDS ORDERED: MORPHINE SULFATE 4 MG/ML INJ. IVP ONE
[2020-11-17] MEDS ORDERED: ONDANSETRON PF 4 MG/2 ML VIAL. IVP ONE
--- NOTE | 2020-11-17 00:05 | PHYS DOC ---
Past Medical History Past Medical History: CAD, High Cholesterol, CA, Other Additional Past Medical Histor: cardiac stent Past Surgical History: Other Additional Past Surgical Histo: cardiac stent Smoking Status: Current Every Day Smoker Alcohol Use: None Drug Use: Marijuana General Adult EDM: Chief Complaint: ABDOMINAL PAIN HPI: HPI: Patient is a 45 year old male who presents with left upper abdominal pain for 2 weeks. States it is burning in nature. Radiates to his back. Made worse with food. Denies N/V, diarrhea. No blood in his stool or melena. Denies dysuria, urgency, or frequency. Denies any hematuria. Has a history of kidney stones, this does not feel similar. Denies any previous history of similar pain. Does have very poor appetite as well. Review of Systems: Review of Systems: Constitutional: Denies fever or chills. Reports poor appetite. [] Eyes: Denies change in visual acuity. [] HENT: Denies nasal congestion or sore throat. [] Respiratory: Denies cough or shortness of breath. [] Cardiovascular: Denies chest pain or edema. [] GI: Reports abdominal pain. Denies nausea, vomiting, bloody stools or diarrhea. [] : Denies dysuria. [] Musculoskeletal: Denies back pain or joint pain. [] Integument: Denies rash. [] Neurologic: Denies headache, focal weakness or sensory changes. [] Endocrine: Denies polyuria or polydipsia. [] Lymphatic: Denies swollen glands. [] Psychiatric: Denies depression or anxiety. [] Heart Score: C/O Chest Pain: No Risk Factors: Risk Factors: DM, Current or recent (<one month) smoker, HTN, HLP, family history of CAD, obesity. Risk Scores: Score 0 - 3: 2.5% MACE over next 6 weeks - Discharge Home Score 4 - 6: 20.3% MACE over next 6 weeks - Admit for Clinical Observation Score 7 - 10: 72.7% MACE over next 6 weeks - Early Invasive Strategies Allergies: Allergies: Allergies Coded Allergies Type Severity Reaction Last Updated Verified No Known Drug Allergies 05/31/17 No Physical Exam: PE: Constitutional: Appears uncomfortable, clutching upper abdomen.. [] HENT: Normocephalic, atraumatic, bilateral external ears normal, oropharynx moist, no oral exudates, nose normal. [] Eyes: PERRLA, EOMI, conjunctiva normal, no discharge. [] Neck: Normal range of motion, no tenderness, supple, no stridor. [] Cardiovascular:Heart rate regular rhythm, no murmur [] Lungs & Thorax: Bilateral breath sounds clear to auscultation [] Abdomen: Tenderness in epigastrium and left upper quadrant. [] Skin: Warm, dry, no erythema, no rash. [] Back: No tenderness, no CVA tenderness. [] Extremities: No tenderness, no cyanosis, no clubbing, ROM intact, no edema. [] Neurologic: Alert and oriented X 3, normal motor function, normal sensory function, no focal deficits noted. [] Psychologic: Affect normal, judgement normal, mood normal. [] Current Patient Data: Vital Signs: Vital Signs Date Time Temp Pulse Resp B/P (MAP) Pulse Ox O2 Delivery O2 Flow Rate FiO2 11/16/20 23:30 97.4 55 16 107/72 (86) 95 Room Air 97.4 EKG: EKG: Sinus rhythm. Rate 54. Normal intervals. No atypical T wave inversion, ST elevation, or ST depression. [] Radiology/Procedures: Radiology/Procedures: [] Impression: [facility] [address] [place], [place] [id number] IMAGING REPORT Signed PATIENT: ELEN PRECIADO CACCOUNT: [id number] : 1975 LOCATION: ER AGE: 45 SEX: M EXAM STATUS: REG ER ORD. PHYSICIAN: SHIN POE MD REASON: left sided abdominal pain;OMNI 300, 75ML PROCEDURE: CT ABD PELV W/ IV CONTRST ONLY PQRS Compliance Statement: One or more of the following individualized dose reduction techniques were utilized for this examination: 1. Automated exposure control 2. Adjustment of the mA and/or kV according to patient size 3. Use of iterative reconstruction technique CT ABDOMEN+PELVIS W Clinical Indication: Reason: left sided abdominal pain; Comparison: None. Technique: Helical CT imaging of the abdomen and pelvis is performed after 75 cc of Omnipaque 300 IV contrast. Oral contrast not administered. Findings: There is bilateral dependent atelectasis. Coronary artery disease. Cardiac size normal. The liver, gallbladder, spleen, pancreas, adrenal glands, and abdominal aorta are normal. There are several 2-4 mm in size bilateral nonobstructing renal calculi. The kidneys enhance symmetrically, no hydronephrosis. The stomach is unremarkable. There is no small bowel obstruction. Appendectomy. There is scattered stool in the colon. There is no colon wall thickening. No abdominal adenopathy or free fluid. The urinary bladder is normal. The prostate and seminal vesicles are normal. There is no pelvic free fluid. There is no acute bone abnormality. IMPRESSION: 1. No acute abdominal or pelvic abnormality. 2. Bilateral nonobstructing renal calculi. Electronically signed by: Julius Valladares MD (11/17/2020 2:46 AM) [facility] DICTATED and SIGNED BY: JULIUS VALLADARES MD DATE: 11/17/20 [id number] 0 Course & Med Decision Making: Course & Med Decision Making Pertinent Labs and Imaging studies reviewed. (See chart for details) Patient 45-year-old male who presents with 10-14 days of upper abdominal pain radiating towards his back. On arrival is afebrile and hemodynamically stable. DDx includes gastritis/PUD, pancreatitis, gastric perforation (although much less likely given stable VS), ACS, although less likely as well. Will obtain labs including lipase, cbc, cmp, ua, CT of abd/pelvis, and EKG 0004 UA without blood. Lipase negative. Not pancreatitis. EKG nonischemic CT scan without acute pathology. With above work-up, believe this is most likely symptomatic PUD. Hemoglobin is normal, and no clinical history of GI bleeding. We will treat with a PPI and sucralfate prescription. Dragon Disclaimer: Azar Disclaimer: This electronic medical record was generated, in whole or in part, using a voice recognition dictation system. Departure Departure Impression: Primary Impression: Epigastric pain Disposition: HOME / SELF CARE / HOMELESS Condition: STABLE Referrals: SHAD BABIN MD (PCP) Schedule an appointment this week. Additional Instructions: Concerned that you may have an ulcer in your stomach. I would like you to take 2 medications to treat this. Omeprazole 40 mg daily, take for a minimum of 2 weeks. Sucralfate 1 tab, three times a day until symptoms improve. Please follow up with your PCP, or if you do not have a PCP, please call the number for the [facility] at [phone]. Scripts Sucralfate (SUCRALFATE) 1 Gm Tablet 1 TAB PO TID, #90 TAB 11 Refills Prov: SHIN POE MD 11/17/20 Omeprazole (OMEPRAZOLE) 40 Mg Capsule.dr 1 CAP PO DAILY, #30 CAP 3 Refills Prov: SHIN POE MD 11/17/20 SHIN POE MD Nov 17, 2020 00:05
[2020-11-17] MEDS ORDERED: CONTRAST GIVEN. MC PRN (00:30)
[2020-11-17] MEDS ORDERED: IOHEXOL 300 MG/ML 100ML VIAL. IV ONE (00:30)
[2020-11-17 01:26] LABS: BASO # 0.1 x10^3/uL (0.0-0.2); BASO % 1 % (0-3); EOS # 0.3 x10^3/uL (0.0-0.7); EOS % 3 % (0-3); HEMATOCRIT 38.8 % (39.0-53.0); HEMOGLOBIN 13.5 g/dL (13.0-17.5); LYMPH % 44 % (24-48); MEAN CORPUSCULAR HEMOGLOBIN 33 pg (25-35); MEAN CORPUSCULAR HGB CONC 35 g/dL (31-37); MEAN CORPUSCULAR VOLUME 94 fL (79-100); MONO # 0.8 x10^3/uL (0.0-1.1); MONO % 7 % (0-9); NEUT # 5.2 x10^3/uL (1.8-7.7); NEUT % 46 % (31-73); PLATELET COUNT 299 x10^3/uL (140-400); RED BLOOD COUNT 4.13 x10^6/uL (4.30-5.70); RED CELL DISTRIBUTION WIDTH 13.2 % (11.5-14.5); WHITE BLOOD COUNT 11.3 x10^3/uL (4.0-11.0)
--- NOTE | 2020-11-17 01:33 | EKG ---
[facility] [address] [place] [address] Test Date: 2020-11-17 Test Time: 00:26:52 Pat Name: ELEN PRECIADO Department: Room: Gender: M [employer]: : 1975 Requested By: SHIN POE Order Number: [id number] Reading MD: Measurements Intervals [place] Rate: 54 P: 63 IL: 148 QRS: 48 QRSD: 84 T: 22 QT: 402 QTc: 383 Interpretive Statements SINUS RHYTHM LEFT ATRIAL ABNORMALITY ABNORMAL ECG RI6.02 No previous ECG available for comparison
[2020-11-17 01:41] LABS: CALCIUM 8.3 mg/dL (8.5-10.1); CREATININE 0.9 mg/dL (0.7-1.3); GFR 91.7; POTASSIUM 4.1 mmol/L (3.5-5.1)
[2020-11-17 01:45] LABS: ALBUMIN 3.3 g/dL (3.4-5.0); TOTAL BILIRUBIN 0.3 mg/dL (0.2-1.0); TOTAL PROTEIN 6.7 g/dL (6.4-8.2)
--- NOTE | 2020-11-17 02:48 | RAD ---
PQRS Compliance Statement: One or more of the following individualized dose reduction techniques were utilized for this examinat ion: 1. Automated exposure control 2. Adjustment of the mA and/or kV according to patient size 3. Use of iterative reconstruction technique CT ABDOMEN+PELVIS W Clinical Indication: Reason: left sided abdominal pain; Comparison: None. Technique: Helical CT imaging of the abdomen and pelvis is performed after 75 cc of Omnipaque 300 IV contrast. Oral contrast not administered. Findings: There is bilateral dependent atelectasis. Coronary artery disease. Cardiac size normal. The liver, gallbladder, spleen, pancreas, adrenal glands, and abdominal aorta are normal. There are several 2-4 mm in size bilateral nonobstructing renal calculi. The kidneys enhance symmetri lewis, no hydronephrosis. The stomach is unremarkable. There is no small bowel obstruction. Appendectomy. There is scattered st ool in the colon. There is no colon wall thickening. No abdominal adenopathy or free fluid. The urinary bladder is normal. The prostate and seminal vesicles are normal. There is no pelvic free fluid. There is no acute bone abnormality. IMPRESSION: 1. No acute abdominal or pelvic abnormality. 2. Bilateral nonobstructing renal calculi. Electronically signed by: Julius Valladares MD (11/17/2020 2:46 AM) [facility]
[2020-11-17 02:50] LABS: BILIRUBIN,URINE NEGATIVE (NEG); CLARITY,URINE CLEAR; COLOR,URINE YELLOW; NITRITE,URINE NEGATIVE (NEG); PROTEIN,URINE NEGATIVE (NEG-TRACE)
[2020-11-17 02:55] LABS: BACTERIA,URINE 0 /HPF (0-FEW); RBC,URINE 0 /HPF (0-2)
[2020-11-17 03:01] VITALS: BP 96/54
[2020-11-17] MEDS ORDERED: OMEP40CA7 PO (03:37)
[2020-11-17] MEDS ORDERED: SUCR1TAB PO (03:37)
[2020-11-17] MEDS ORDERED: LIDO:MAALOX 1:1 20 ML SINGLE DOSE. SWSW ONE (03:45)
[2020-11-17] MEDS ORDERED: LIDOCAINE 2% VISCOUS 15 ML SOLUTION. SWSW ONE (03:45)
== END 2020-11-17 04:16 | disposition home or self-care (01) ==
LOC: ER 22:11
DX: R10.13 Epigastric pain (principal); E78.00 Pure hypercholesterolemia, unspecified; I25.10 Atherosclerotic heart disease of native coronary artery without angina pectoris; R10.12 Left upper quadrant pain; I25.2 Old myocardial infarction
CPT/HCPCS: 36415; 74177; 80053; 81001; 83690; 85025; 93005; 96374; 96375; 99285; J2270; J2405; Q9967